=== PATIENT | female | born 1960 | race Caucasian/White ===

== ENCOUNTER → 2017-10-27 | Outpatient (CLI) | payer OTHER ==
--- NOTE | 2017-10-27 11:30 | XR ---
EXAMINATION TYPE: XR knee complete RT DATE OF EXAM: 10/27/2017 COMPARISON: NONE HISTORY: Pain TECHNIQUE: Four views are submitted. FINDINGS: Hypertrophic changes are noted and there is narrowing of the patellofemoral joint and the medial and lateral compartment of the knee joint. No erosive changes. Mild diffuse osteopenia. Soft tissue calci fications are noted. Osseous structures are intact. No acute fracture seen. IMPRESSION: 1. Arthritic changes. Correlate for osteoarthritis.
== END ==
LOC: RADXRMAIN 11:09
PROVIDERS: ATTEND Family Medicine
DX: M25.561 Pain in right knee (principal)

== ENCOUNTER → 2017-12-08 | Outpatient (CLI) | payer OTHER ==
--- NOTE | 2017-12-08 16:17 | MR ---
EXAMINATION TYPE: MR knee RT wo con DATE OF EXAM: 12/08/2017 COMPARISON: Right knee x-ray October 27, 2017 HISTORY: Other specified joint dis, right knee per order. Right knee swelling for 1.5 months per [facility]. TECHNIQUE: Multiplanar, multisequence images of the knee is performed without IV contrast. FINDINGS: MEDIAL MENISCUS: Anterior horn is intact without tear. There is oblique and globular increased signal posterior horn of medial meniscus extends to inferior articular surface. LATERAL MENISCUS: Anterior horn is intact without tear. Posterior horn is truncated with fraying trent g posterior margin and increased signal inferiorly extending to articular surface, findings are consi stent with full-thickness meniscal tear. CRUCIATE LIGAMENTS: The anterior and posterior cruciate ligaments are intact and unremarkable. COLLATERAL LIGAMENTS: The medial collateral ligament and lateral collateral ligament complex are inta ct. Moderate to severe fluid signal surrounds medial collateral ligament. EXTENSOR MECHANISM: Visualized quadriceps and patellar tendons are intact. EFFUSION: There is moderate to large size suprapatellar joint effusion. POPLITEAL CYST: No popliteal/tenorio cyst. TRICOMPARTMENT SPACES: There is moderate to advanced tricompartment joint space loss and moderate spu rring more prominent than suspected on radiographs. Tibial condylar spurring is seen. CARTILAGE: There is chondromalacia patella with areas of full-thickness cartilaginous loss along post erior patellar pole identified. No reactive osseous changes are seen. There is significant cartilagin ous loss medial tibiofemoral compartment with full-thickness loss is present. There is thinning of ar ticular cartilage lateral tibiofemoral compartment. BONE MARROW SIGNAL: There are areas of heterogeneous increased T2 signal involving the distal medial femoral condyle and lateral tibial plateau anteriorly seen best coronal image 18 and corresponding ax ial images 7 and 10. OTHER: No additional significant abnormality is appreciated. IMPRESSION: 1. There is background moderate to advanced tricompartment degenerative changes with full-thickness c hondromalacia patella present and full-thickness cartilaginous loss medial tibiofemoral compartment w ith areas of [id number]-[id number] formation or bone marrow edema noted. 2. Moderate to severe MCL sprain injury. 3. Full-thickness tear posterior horn of medial meniscus. 4. Full-thickness tear posterior horn of lateral meniscus. 5. Moderate to large size suprapatellar joint effusion.
== END | disposition home or self-care (01) ==
LOC: RADMRIMAIN 06:36
PROVIDERS: ATTEND Family Medicine
DX: S83.281A Other tear of lateral meniscus, current injury, right knee, initial encounter (principal); S83.241A Other tear of medial meniscus, current injury, right knee, initial encounter; S83.411A Sprain of medial collateral ligament of right knee, initial encounter; M22.41 Chondromalacia patellae, right knee; M94.8X6 Other specified disorders of cartilage, lower leg

== ENCOUNTER → 2018-09-28 | Outpatient (CLI) | payer OTHER ==
[2018-09-28 09:44] LABS: HCT 42.4 % (34.0-46.0); MCH 30.4 pg (25.0-35.0); MCHC 33.1 g/dL (31.0-37.0); MCV 91.9 fL (80.0-100.0); Mean Platelet Volume 7.5; Platelet Count 234 k/uL (150-450); RBC 4.62 m/uL (3.80-5.40); WBC 8.4 k/uL (3.8-10.6)
== END | disposition home or self-care (01) ==
LOC: LABPAT 08:49
PROVIDERS: ATTEND Internal Medicine Interventional Cardiology
DX: Z01.812 Encounter for preprocedural laboratory examination (principal); R07.9 Chest pain, unspecified; I10 Essential (primary) hypertension; E78.2 Mixed hyperlipidemia
CPT/HCPCS: 36415; 80051; 82565; 84520; 85027

== ENCOUNTER 2018-10-12 06:25 | Day surgery (SDC) | payer OTHER ==
[2018-10-07 16:48] VITALS: BMI 34.0
[~2018-10-12 06:25] MED LIST: ALPRAZolam 0.25 MG TAB PO PRN; ALPRAZolam 0.5 MG TAB PO PRN; ASPIRIN 325 MG TAB PO STA; ATORVASTATIN 80 MG TAB PO STA; NITROGLYCERIN SL TABS 0.4 MG TAB SUBLINGUAL PRN; SODIUM CHLORIDE 0.9% 1,000 ML in EMPTY BAG 1 BAG IV ONE
[2018-10-12 07:04] VITALS: RESP 16; TEMP 98.5
[2018-10-12] MEDS ORDERED: SODIUM CHLORIDE 0.9% 1,000 ML IV ONE (07:04)
[2018-10-12] MEDS ORDERED: VERAPAMIL 2.5 MG/ML 2 ML AMP ONE (07:20)
[2018-10-12] MEDS ORDERED: LIDOCAINE 1% INJ 10MG/ML (20 ML MDV) ONE (07:20)
[2018-10-12] MEDS ORDERED: fentaNYL (PF) 50 MCG/ML 2 ML AMP ONE (07:21)
[2018-10-12] MEDS ORDERED: HEPARIN SODIUM 1,000 UN/ML (10ML VL) ONE (07:21)
[2018-10-12] MEDS ORDERED: fentaNYL (PF) 50 MCG/ML 2 ML AMP IVP ONE (07:35)
[2018-10-12] MEDS ORDERED: LIDOCAINE 2% INJ 20 MG/ML SQ ONE ×2 (07:35→07:36)
[2018-10-12] MEDS ORDERED: VERAPAMIL SYRINGE (5 MG/10 ML) INTRAARTER ONE (07:39)
[2018-10-12] MEDS ORDERED: MIDAZOLAM 2 MG/2 ML VIAL IVP ONE (07:39)
[2018-10-12] MEDS ORDERED: HEPARIN SODIUM 1,000 UN/ML (10ML VL) IV ONE (07:45)
[2018-10-12] MEDS ORDERED: IOPAMIDOL-370 125ML BTL INJ ONE (07:52)
[2018-10-12] MEDS ORDERED: RX INFO: IV CONTRAST WAS GIVEN 1 EACH MISC MISCELLANE PRN (08:05)
[2018-10-12] MEDS ORDERED: SODIUM CHLORIDE 0.9% 1,000 ML IV SCH (08:15)
[2018-10-12] MEDS ORDERED: CHONDR SU A SOD PO SCH (09:00)
[2018-10-12] MEDS ORDERED: NON-FORMULARY DRUG (Ubidecarenone [Co Q-10] 200 MG) PO SCH (09:00)
[2018-10-12] MEDS ORDERED: GLUCOSAMINE PO SCH (09:00)
[2018-10-12] MEDS ORDERED: NON-FORMULARY DRUG (Aspirin Ec 81 MG) PO SCH (09:00)
[2018-10-12] MEDS ORDERED: CARVEDILOL 25 MG PO SCH (09:00)
[2018-10-12] MEDS ORDERED: NON-FORMULARY DRUG (Turmeric Root Extract [Turmeric] 500 MG) PO SCH (09:00)
[2018-10-12] MEDS ORDERED: HYDROCHLOROTHIAZIDE 25 MG TAB PO SCH (09:00)
[2018-10-12] MEDS ORDERED: MAGNESIUM OXIDE 750 MG PO SCH (09:00)
[2018-10-12] MEDS ORDERED: ISOSORBIDE MONONITRATE ER 30 MG TAB.ER.24H PO SCH (09:00)
--- NOTE | 2018-10-12 10:56 | CC ---
CARDIAC CATHETERIZATION REPORT Mrs. Pierce is a 58-year-old female with known history of hypertension, hyperlipidemia who presented with symptoms of progressive dyspnea on exertion as well as chest discomfort. She has underwent myocardial perfusion imaging that revealed no evidence of inducible ischemia by nuclear scanning but there was significant EKG changes. In view of her symptoms and her history, recommendation made regarding cardiac catheterization, the procedures, risks and complications were discussed with the patient who is in full understanding and agreement. PROCEDURE: Patient was brought to the clinical laboratory scientist in a fasting semi-sedated state after receiving fentanyl and Benadryl and achieving moderate conscious sedated state. Using Xylocaine anesthesia and Seldinger technique, a 6-Zambian sheath was introduced in the right radial artery. Selective right and left coronary angiography was performed using 5- [place]ambian 3.5 bend right and left Amadou catheter. Multiple views of the coronary artery including hemiaxial views obtained. Following that, a 5-Zambian tight pigtail catheter was introduced in the left ventricle and a 30 degree SOTOMAYOR view of the left ventricle was obtained. Following that, catheter and sheaths were removed. Hemostasis was obtained with deployment of TR band. There was no immediate complication. Patient is returned to her room in stable condition. Of note, the patient received 5000 units of intravenous heparin as well as intra-arterial verapamil. FINDINGS: FLUOROSCOPY: There was mild calcification involving the left main and the LAD. LEFT MAIN CORONARY ARTERY: This is a short-size vessel, bifurcating into left circumflex, left anterior descending artery. Left main coronary artery has no evidence of high-grade stenosis. LEFT ANTERIOR DESCENDING ARTERY: This is a large-sized vessel, reaching toward the apex with a wraparound apex segment giving rise to 2 diagonal branches in the mid segment of the LAD. There is a 10%-20% plaque. The rest of the vessel has no high- grade stenosis. LEFT CIRCUMFLEX: This is a nondominant vessel, large in caliber, giving rise to 2 obtuse marginal branches. The first one is very proximal. The left circumflex as well as branches have no evidence of obstructive coronary artery disease. RIGHT CORONARY ARTERY: This is a large dominant vessel, bifurcating distally into PDA and posterolateral segment and branches. The right coronary artery in the proximal segment has 10%-20%plaque. The rest of the vessel has no high-grade stenosis. LEFT VENTRICULOGRAM: Left ventriculogram is performed in 30 degree SOTOMAYOR view and revealed normal left ventricular size and systolic function. Ejection fraction is 60%. There was no significant mitral regurgitation. HEMODYNAMICS: There was no gradient across the aortic valve. The left ventricular end-diastolic pressure was 14-16 mmHg. CONCLUSION: 1. Mild intimal disease involving the left circumflex at the left anterior descending artery and the right coronary artery. 2. Normal left ventricular size and systolic function. RECOMMENDATION: In view of finding anatomy, I recommend continue medical therapy with aggressive coronary risk modifications being initiated. Those findings and recommendation were discussed with the patient and her family who are in full understanding and agreement. Duration of procedure is 20 minutes. MMODL / IJN: [id number] /
[2018-10-12 12:27] VITALS: BP 124/58
[2018-10-12 13:00] VITALS: PULSE 65
[2018-10-12] MEDS ORDERED: PRAVASTATIN SODIUM 20 MG TAB PO SCH (21:00)
[2018-10-13] MEDS ORDERED: NON-FORMULARY DRUG (Omeprazole 20 MG) PO SCH (07:30)
== END 2018-10-12 13:00 | disposition home or self-care (01) ==
LOC: CATHCVL 06:25
PROVIDERS: ATTEND Internal Medicine Interventional Cardiology
DX: R07.89 Other chest pain (principal); I25.10 Atherosclerotic heart disease of native coronary artery without angina pectoris; I10 Essential (primary) hypertension; E78.2 Mixed hyperlipidemia; E78.00 Pure hypercholesterolemia, unspecified; Z79.82 Long term (current) use of aspirin; Z79.899 Other long term (current) drug therapy; Z88.5 Allergy status to narcotic agent; Z88.0 Allergy status to penicillin
CPT/HCPCS: 93458; C1894; C1769; J2001; J2250; J3010; J1644; Q9967

== ENCOUNTER → 2018-12-31 | Outpatient (CLI) | payer OTHER ==
--- NOTE | 2018-12-31 11:39 | XR ---
EXAM TYPE: LUMBAR SPINE X RAY SERIES COMPARISON: NONE HISTORY: Pain TECHNIQUE: 4 views are submitted. FINDINGS: Alignment is anatomic. The pedicles are intact. The transverse processes are intact. There is no s pondylolysis or spondylolisthesis. Hypertrophic and degenerative change of the spine. Multilevel fac et arthropathy. IMPRESSION: 1. Multilevel degenerative disc disease and facet arthropathy.
== END ==
LOC: RADXRMAIN 11:00
PROVIDERS: ATTEND Family Medicine
DX: M51.36 Other intervertebral disc degeneration, lumbar region (principal); M46.96 Unspecified inflammatory spondylopathy, lumbar region
CPT/HCPCS: 72100

== ENCOUNTER → 2019-05-10 | Outpatient (CLI) | payer OTHER ==
[2019-05-10 16:01] LABS: African American GFR (CKD) 70.4 (60.0-200.0); Albumin 4.5 g/dL (3.80-4.90); Albumin/Globulin Ratio 2.05 (1.60-3.17); Anion Gap 11.8 mmol/L (4.00-12.00); Calcium 9.8 mg/dL (8.7-10.3); Carbon Dioxide 32.2 mmol/L (21.6-31.8); Chol/HDL Ratio 4.39; Globulin 2.2 g/dL (1.6-3.3); LDL Cholesterol,Calculated 76.6 mg/dL (0.0-131.0); Potassium 3.7 mmol/L (3.5-5.5); Total Bilirubin 0.6 mg/dL (0.2-1.2); Total Protein 6.7 g/dL (6.2-8.2); VLDL Calculation 35.4 mg/dL (5.00-40.00)
== END ==
LOC: LABWHC1 09:02
PROVIDERS: ATTEND Nurse Practitioner Adult Health
DX: E78.2 Mixed hyperlipidemia (principal); I10 Essential (primary) hypertension
CPT/HCPCS: 36415; 80053; 80061

== ENCOUNTER → 2022-04-08 | Outpatient (CLI) | payer OTHER ==
--- NOTE | 2022-04-08 09:02 | USB ---
Reason for Exam: Clinical finding. Patient History: Menarche at age 11. First Full-Term at age 15. Postmenopausal. Risk Values: Tonia 5 year model risk: 1.1%. NCI Lifetime model risk: 4.9%. Technique: Method: Whole Breast Handheld. Prior Study Comparison: 05/01/2015 Bilateral Screening Mammogram, [facility]. 07/07/2017 Bilateral Screening Mammogram, [facility]. 10/29/2021 Bilateral Screening Mammogram, [facility]. Findings: The whole breast of the left breast, the axilla of the left breast and the retroareolar of the left breast were scanned. There is an irregular hypoechoic mass at the left 6:00 position for which biopsy is recommended. No additional lesions noted within the left breast. No abnormal lymph nodes visualized at this time.. Overall Assessment: Highly suggestive of malignancy, BI-RAD 5 Management: Ultrasound Core Biopsy of the left breast. A clinical breast exam by your physician is recommended on an annual basis and results should be correlated with mammographic findings. Electronically signed and approved by: Shiraz Barraza M.D. Radiologis
== END | disposition home or self-care (01) ==
LOC: RADUSWWP 08:13
PROVIDERS: ATTEND Family Medicine
DX: N63.24 Unspecified lump in the left breast, lower inner quadrant (principal)

== ENCOUNTER → 2022-04-15 | Day surgery (SDC) | payer OTHER | LOC: RADUSWWP 12:45 | PROVIDERS: ATTEND Surgery | DX: C50.512 Malignant neoplasm of lower-outer quadrant of left female breast (principal) | CPT/HCPCS: 88305; 88342; 88341; 77065; 19083; 19084; A4648 ==

== ENCOUNTER → 2022-05-03 | Outpatient (CLI) | payer OTHER ==
--- NOTE | 2022-05-09 15:03 | BMR ---
EXAMINATION TYPE: MR breast BILAT wo/w con DATE OF EXAM: 05/05/2022 COMPARISON: Mammogram and ultrasound dated 04/15/2022. Ultrasound dated 04/08/2022. Mammograms dated 10/29/2021 and 07/07/2017. 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 TECHNIQUE: PULSE SEQUENCES: Multiplanar, multisequence MR images of the breast were obtained on a MRI imaging [facility]. Pre-contrast axial T2 fat-saturated, pre-contrast non-fat saturated T1, and one pre- and five post-contrast fat-saturated images were obtained of both breasts together with the breast coil. Post- processed subtraction and MIP reconstructions were then generated. Dynamic images were spatially renny stered using the [employer] software package, and dynamic curves and parametric images were e valuated. As part of the dynamic portion of this examination, 10 mL of Gadavist was administered intravenously, without complication. Field of view for the dynamic portion of this study was 34 cm. FINDINGS: The technical quality of this study is considered adequate to make a final assessment and recommendat ion. There is heterogeneous fibroglandular tissue bilaterally and mild background enhancement. Axial T2 sequence demonstrates normal axillary lymph nodes. Axial T2 sequence demonstrates no cysts or fluid collections. Non fat saturated T1 sequence demonstrates no fat containing lesions. 2 areas of signal void are iden tified in the 6 o'clock position of the left breast corresponding to mammographic marker clip seen on 04/15/2022 post biopsy mammogram. Delayed post contrast sequence demonstrates no internal mammary lymphadenopathy. Regarding the right breast: There are no masses, architectural distortion or suspicious areas of enha ncement. Regarding the left breast: At the 6 o'clock position, 6.1 cm from the nipple, there is a round mass w ith irregular margins measuring 2.0 x 1.5 x 1.5 cm. Internal enhancement is heterogeneous. Kinetic as sessment demonstrates fast initial enhancement followed by washout in the delayed portions of the cur ve. This is best seen in image number 51 of the dynamic sequence. This mass contains signal void from marker clip and is the largest mass identified. At the 6 o'clock position, 5.0 cm from the nipple, there is an irregular mass with irregular margins measuring 1.5 x 1.1 x 1.1 cm. Internal enhancement is heterogeneous. Kinetic assessment demonstrates fast initial enhancement followed by plateau in the delayed portions of the curve. This is best seen in image number 49 of the dynamic sequence. Multiple additional masses are seen also at the 6 o'clock position but 10-11 cm from the nipple. Tota l extent of the masses identified is 8.0 cm. In addition, there is segmental distribution non mass enhancement measuring 11.7 x 5.5 cm. IMPRESSION: Multifocal breast malignancy identified centered at the 6 o'clock position with associated segmental distribution non mass enhancement, maximum extent of 11.7 cm. The largest and target mass measures a maximum extent of 2.0 cm. No evidence of malignancy in the right breast. No lymphadenopathy. Recommendations: Appropriate action be taken of the known multifocal left breast malignancy. If it would change surgic al management, additional biopsies of the non mass enhancement or posterior masses can be performed t o confirm a maximum extent of disease of 11.7 cm. BI-RADS category 1, negative right breast. BI-RADS category 6, known biopsy proven malignancy left breast. I have reviewed interpretation from outside car sales consultant at [facility] and agree with the interpretation
== END | disposition home or self-care (01) ==
LOC: RADMRIMAIN 07:48
PROVIDERS: ATTEND Surgery
DX: C50.811 Malignant neoplasm of overlapping sites of right female breast (principal); C50.912 Malignant neoplasm of unspecified site of left female breast
CPT/HCPCS: 77049; A9585

== ENCOUNTER → 2022-05-09 | Outpatient (CLI) | payer OTHER ==
--- NOTE | 2022-05-09 13:09 | CA ---
Transthoracic Echo Report Name: Augusta Pierce Age: 62 Gender: F : 1960 Exam Date: 05/09/2022 11:39 Exam Location: [facility] Ht (in): 68 Wt (lb): 218 Ordering Physician: Shanna Strange MD Attending/Referring Phys: Natural Resources Manager Sherrell Heard RDCS Procedure CPT: Indications: Z71.3 dietary surveil/counsel[employer] Cardiac Hx: Technical Quality: Fair Contrast 1: Total Dose (mL): Contrast 2: Total Dose (mL): MEASUREMENTS (Male / Female) Normal Values 2D ECHO LV Diastolic Diameter PLAX 4.2 cm 4.2 - 5.9 / 3.9 - 5.3 cm LV Systolic Diameter PLAX 3.0 cm IVS Diastolic Thickness 1.4 cm 0.6 - 1.0 / 0.6 - 0.9 cm LVPW Diastolic Thickness 1.4 cm 0.6 - 1.0 / 0.6 - 0.9 cm LV Relative Wall Thickness 0.7 RV Internal Dim ED PLAX 3.5 cm LVOT Diameter 2.2 cm LA Systolic Diameter LX 3.9 cm 3.0 - 4.0 / 2.7 - 3.8 cm LA Volume 68.8 cm??? 18 - 58 / 22 - 52 cm??? M-MODE Aortic Root Diameter MM 3.5 cm MV E Point Septal Separation 0.6 cm AV Cusp Separation MM 1.9 cm DOPPLER AV Peak Velocity 217.5 cm/s AV Peak Gradient 18.9 mmHg AV Mean Velocity 134.5 cm/s AV Mean Gradient 8.9 mmHg AV Velocity Time Integral 49.1 cm LVOT Peak Velocity 118.5 cm/s LVOT Peak Gradient 5.6 mmHg AV Area Cont Eq pk 2.1 cm??? MV Area PHT 1.9 cm??? Mitral E Point Velocity 89.0 cm/s Mitral A Point Velocity 107.9 cm/s Mitral E to A Ratio 0.8 MV Deceleration Time 392.5 ms MV E' Velocity 5.0 cm/s Mitral E to MV E' Ratio 17.8 TR Peak Velocity 238.2 cm/s TR Peak Gradient 22.7 mmHg Right Ventricular Systolic Press 27.1 mmHg FINDINGS Left Ventricle Left ventricular ejection fraction is estimated at 60-65 %. Left ventricular cavity size normal. Moderate concentric left ventricular hypertrophy. Right Ventricle Mild right ventricular dilatation. Moderate pulmonary hypertension. Right Atrium Normal right atrial size. Left Atrium Mildly increased left atrial diameter. Moderately increased left atrial volume. Mildly increased left atrial area. No evidence for an atrial septal defect. Mitral Valve Mitral valve thickened. Mitral annular calcification. Trace to mild mitral regurgitation. Aortic Valve Focal thickening of the aortic valve cusps. Mild aortic stenosis with a peak gradient of 19 mmHg and a mean gradient of 9 mmHg. Tricuspid Valve Mild tricuspid regurgitation. Pulmonic Valve Structurally normal pulmonic valve. Pericardium Normal pericardium. No pericardial effusion. Aorta Normal size aortic root and proximal ascending aorta. CONCLUSIONS Normal left ventricular ejection fraction 60-65% Moderate increased left ventricular wall thickness Mild to moderately dilated left atrium Trace to mild mitral regurgitation Mild aortic stenosis with mean gradient 9 mmHg Mild tricuspid regurgitation Previewed by: Dr. Jeremy Johnson DO (Electronically Signed) Final Date: 09 May 2022 13:08
== END | disposition home or self-care (01) ==
LOC: RADECHMAIN 11:18
PROVIDERS: ATTEND Internal Medicine
DX: Z01.818 Encounter for other preprocedural examination (principal); I08.3 Combined rheumatic disorders of mitral, aortic and tricuspid valves; Z71.3 Dietary counseling and surveillance
CPT/HCPCS: 93306

== ENCOUNTER 2022-05-16 06:22 | Day surgery (SDC) | payer OTHER ==
[2022-05-14 15:25] VITALS: BMI 31.9
--- NOTE | 2022-05-15 16:19 | P.GSHP ---
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 Patient was seen by oncology and plans currently are to begin neoadjuvant chemotherapy. Patient has not had a catheter previously. Past Medical History Past Medical History: Atrial Fibrillation, Cancer, Diabetes Mellitus, GERD/Reflux, Hyperlipidemia, Hypertension, Osteoarthritis (OA) Additional Past Medical History / Comment(s): DDD., chronic constipation, pre- diabetes., new diagnosis left breast cancer History of Any Multi-Drug Resistant Organisms: None Reported Past Surgical History: Tubal Ligation Additional Past Surgical History / Comment(s): cataracts Past Anesthesia/Blood Transfusion Reactions: No Reported Reaction Past Psychological History: No Psychological Hx Reported Smoking Status: Never smoker Past Alcohol Use History: None Reported Past Drug Use History: None Reported - Past Family History Sister(s) Family Medical History: Cancer, Renal Disease Additional Family Medical History / Comment(s): throat cancer Father Family Medical History: CVA/TIA Daughter(s) Family Medical History: Pulmonary Embolus Additional Family Medical History / Comment(s): PE CAUSED BY CONTROL Medications and Allergies Home Medications Medication Instructions Recorded Confirmed Type hydroCHLOROthiazide [Hydrodiuril] 25 mg PO DAILY 10/07/14 05/15/22 History Ubidecarenone [Co Q-10] 200 mg PO DAILY 03/27/16 05/15/22 History Glucosamine/Chondr Benson A Sod [Osteo 1 each PO DAILY 10/07/18 05/15/22 History Bi-Flex Caplet] Pravastatin Sodium [Pravachol] 20 mg PO HS 10/07/18 05/15/22 History carvediloL 25 mg PO BID 10/07/18 05/15/22 History Ezetimibe [Zetia] 10 mg PO HS 04/08/22 05/15/22 History Flecainide [Tambocor] 50 mg PO Q12HR 04/08/22 05/15/22 History Rivaroxaban [Xarelto] 20 mg PO HS 04/08/22 05/15/22 History Magnesium 400 mg PO DAILY 05/15/22 05/15/22 History Multivit with Calcium,Iron,Min 1 each PO DAILY 05/15/22 05/15/22 History [Women's Multivitamin] Allergies Allergy/AdvReac Type Severity Reaction Status Date / Time codeine Allergy Swelling Verified 05/14/22 15:04 Penicillins Allergy Rash/Hives Verified 05/14/22 15:04 Surgical - Exam Physical exam: General: Well-developed, well-nourished HEENT: Normocephalic, sclerae nonicteric Abdomen: Nontender, nondistended Extremities: No edema Neuro: Alert and oriented Assessment and Plan (1) Breast cancer, left Narrative/Plan: 62-year-old female with left-sided breast cancer. We'll proceed with Port-A-Cath placement. Risks of bleeding, infection, DVT, pneumothorax, catheter malfunction, anesthesia related complications were discussed. The p atient understands and wishes to proceed. Status: Acute Code(s): C50.912 - MALIGNANT NEOPLASM OF UNSPECIFIED SITE OF LEFT FEMALE BREAST SNOMED Code(s): 907436675
[~2022-05-16 06:22] MED LIST changes: +ACETAMINOPHEN TAB 500 MG TAB PO PRN; -ALPRAZolam 0.25 MG TAB PO PRN; -ALPRAZolam 0.5 MG TAB PO PRN; -ASPIRIN 325 MG TAB PO STA; -ATORVASTATIN 80 MG TAB PO STA; +DEXAMETHASONE SOD PHOSPHATE 4 MG/ML 1 ML VIAL IV ONE; +HEPARIN SODIUM,PORCINE/PF 5,000 UNIT/0.5 ML SYRINGE SQ PRN; +LACTATED RINGERS 1,000 ML IV SCH; +MIDAZOLAM 2 MG/2 ML VIAL IV PRN; -NITROGLYCERIN SL TABS 0.4 MG TAB SUBLINGUAL PRN; +ONDANSETRON 4 MG/2 ML VIAL IVP ONE; +Pre Op ABX Message 1 EACH MISC MISCELLANE ONE; +SCOPOLAMINE 1 MG/72 HR PATCH TRANSDERM ONE; -SODIUM CHLORIDE 0.9% 1,000 ML in EMPTY BAG 1 BAG IV ONE
[2022-05-16] MEDS ORDERED: fentaNYL (PF) 50 MCG/ML 2 ML AMP IV PRN (07:00)
[2022-05-16] MEDS ORDERED: LIDOCAINE (PF) 10 MG/ML 2 ML VIAL SQ ONE ×3 (07:25→08:05)
[2022-05-16] MEDS ORDERED: HEPARIN SODIUM,PORCINE 100 UNIT/ML 5 ML VIAL IV ONE ×2 (07:25→08:16)
[2022-05-16] MEDS ORDERED: PROPOFOL 10 MG/ML 20 ML VIAL IV ONE (07:35)
[2022-05-16] MEDS ORDERED: diphenhydrAMINE 50 MG/ML 1 ML VIAL ONE (07:35)
[2022-05-16] MEDS ORDERED: LIDOCAINE 2% INJ 20 MG/ML (2 ML VIAL) ONE (07:35)
[2022-05-16] MEDS ORDERED: fentaNYL (PF) 50 MCG/ML 2 ML AMP ONE (07:35)
[2022-05-16] MEDS ORDERED: MIDAZOLAM 2 MG/2 ML VIAL ONE (07:35)
[2022-05-16] MEDS ORDERED: SODIUM CHLORIDE 0.9% 100 ML with ceFAZolin 2,000 MG IV ONE ×2 (07:57)
[2022-05-16] MEDS ORDERED: LACTATED RINGERS 1,000 ML IV ONE (08:16)
[2022-05-16] MEDS ORDERED: HYDROcodone/APAP 5-325MG 1 EACH TAB PO PRN (08:49)
[2022-05-16] MEDS ORDERED: NALOXONE 0.4 MG/ML 1 ML VIAL IV PRN (08:49)
--- NOTE | 2022-05-16 08:52 | P.OP ---
Date of Procedure: 05/16/22 Procedure(s) Performed: PREOPERATIVE DIAGNOSIS: Left breast cancer POSTOPERATIVE DIAGNOSIS: Same PROCEDURE: Port-A-Cath placement with fluoroscopic and ultrasound guidance SURGEON: Sanjuana EBL: Minimal ANESTHESIA: Gen. COMPLICATIONS: None OPERATIVE PROCEDURE: Patient was brought and placed on the operative table in the supine position. The patient was sedated per anesthesia that time. The chest and neck were prepped and draped in usual sterile fashion. The ultrasound probe was used to identify the location of the right internal jugular vein. The skin was localized with lidocaine. The Seldinger needle was advanced into the IJ under ultrasound guidance. The wire was advanced through the needle under fluoroscopic guidance into the superior vena cava. A port pocket was created in the right infraclavicular location. The catheter was tunneled from the wire entrance site to the port pocket. The port was then connected to the catheter. The dilator introducer was threaded over the guidewire. The guidewire and dilator were then removed. The catheter was advanced through the introducer and introducer was then removed. The tip was seen to be in the right atrial junction via fluoroscopy. A picture of the radiograph showing the tip at the radial digital junction was taken. Port was flushed with both saline and a Hep- Lock solution. There was good flow both in and out of the port. The port was sutured in underlying tissues using 3-0 silk sutures. The subcutaneous tissues were reapproximated using 3-0 Vicryl sutures and the skin at both locations using 4-0 Monocryl sutures. Skin glue and sterile dressings then applied. DISPOSITION: Stable to recovery room
[2022-05-16 09:08] VITALS: TEMP 97
--- NOTE | 2022-05-16 09:19 | XR ---
EXAMINATION TYPE: XR chest 1V confirm line [facility] DATE OF EXAM: 05/16/2022 COMPARISON: Chest x-ray 03/27/2016 HISTORY: Status post central venous catheter placement TECHNIQUE: Single frontal view of the chest is obtained. FINDINGS: There is been interval placement of a port in the right pectoral region, catheter courses via jugular approach with the distal tip at the level of the cavoatrial junction. There is no evident pneumothorax or pleural effusion. Cardiac mediastinal silhouette is stable accounting for difference s in technique. Aorta is dense. There are overlying leads. Some patchy densities present at the left lung base. Mild apical pleural thickening in the right is unchanged. IMPRESSION: No evident complication status post central venous catheter placement. There may be some basilar atelectasis, follow-up as indicated.
--- NOTE | 2022-05-16 09:20 | FL ---
Fluoroscopy HISTORY: Port-A-Cath insertion 8 seconds fluoroscopy time supplied to the referring clinician. 1 intraoperative C-arm images docume nt the procedure. See dictated report from general surgery.
[2022-05-16 09:36] VITALS: BP 141/80; PULSE 66; RESP 20
== END 2022-05-16 09:55 ==
LOC: OR 06:22
PROVIDERS: ATTEND Surgery
DX: C50.912 Malignant neoplasm of unspecified site of left female breast (principal); I48.91 Unspecified atrial fibrillation; E11.9 Type 2 diabetes mellitus without complications; K21.9 Gastro-esophageal reflux disease without esophagitis; I10 Essential (primary) hypertension; E78.5 Hyperlipidemia, unspecified; M19.90 Unspecified osteoarthritis, unspecified site; K59.00 Constipation, unspecified; Z98.41 Cataract extraction status, right eye; Z98.42 Cataract extraction status, left eye; Z98.51 Tubal ligation status; Z80.8 Family history of malignant neoplasm of other organs or systems; Z82.3 Family history of stroke; Z79.899 Other long term (current) drug therapy; Z88.5 Allergy status to narcotic agent; Z88.0 Allergy status to penicillin
CPT/HCPCS: 77001; 36561; 76937; C1788; J2250; J1200; J2001 ×2; J1642; J1100; J0690; J3010; J2704; J1644

== ENCOUNTER → 2022-05-16 | Outpatient (CLI) | payer OTHER ==
--- NOTE | 2022-05-18 08:41 | PE ---
EXAMINATION TYPE: PET CT fusion skull to thigh DATE OF EXAM: 05/16/2022 COMPARISON: MRI bilateral breast May 03, 2022 HISTORY: Left-sided breast cancer TECHNIQUE: Following the intravenous administration of 11.36 mCi of F-18 FDG, whole body images are performed from the skull base to the midthigh. Images are reviewed on the computer in the coronal, a xial, and sagittal planes. Reconstructed rotating images are created on independent workstation and reviewed on the computer. A localization and attenuation correction CT is performed in conjunction with the PET scan. Blood glucose level equals 143 SCAN: Initial Scan FINDINGS: SKULL BASE AND NECK: No areas of abnormal hypermetabolic uptake. CHEST, MEDIASTINUM, AND HILAR REGION: Biopsy clip left breast noted axial image 101 just medial and i nferior to the left nipple. Mild hypermetabolic uptake just posterior-lateral to this has max SUV of 2.97 on axial image 102. This likely corresponds to the dominant 2.0 cm enhancing mass or neoplasm on recent MRI. Additional areas of nonmass enhancement are less well-seen without definitive abnormal h ypermetabolic uptake. No abnormal hypermetabolic uptake in the left axilla. No abnormal hypermetaboli c uptake in the right breast or axilla. No additional areas of abnormal hypermetabolic uptake in the thorax. ABDOMEN AND PELVIS: Normal excretion. No areas of abnormal hypermetabolic uptake. OSSEOUS STRUCTURES: No areas of abnormal hypermetabolic uptake. OTHER CT: There is right internal jugular Mediport catheter terminating in SVC. There is mild cardiom egaly with moderate coronary artery calcification. There is calcification at level of the mitral and aortic valves. There is large simple appearing thin-walled cyst occupying large portion of the central upper to left kidney and incidental exophytic thin-walled cyst anteriorly upper pole of the right kidney. Sigmoid colonic diverticulosis is present. Slight scoliotic curvature to the spine. Vacuum disc phenomenon and disc space narrowing lower lumbar levels. IMPRESSION: Primary left breast neoplasm on MRI less well seen on PET/CT. No abnormal hypermetabolic uptake in the right breast or evidence for metastatic disease on this study.
== END | disposition home or self-care (01) ==
LOC: RADPETMAIN 11:25
PROVIDERS: ATTEND Internal Medicine
DX: C50.112 Malignant neoplasm of central portion of left female breast (principal)
CPT/HCPCS: 78815; A9552

== ENCOUNTER → 2022-11-04 | Outpatient (CLI) | payer OTHER ==
--- NOTE | 2022-11-11 06:10 | BMR ---
EXAMINATION TYPE: MR breast BILAT wo/w con DATE OF EXAM: 11/04/2022 COMPARISON: Most recent breast MRI May 03, 2022 and older studies. Mammogram postbiopsy April 15, 2022 HISTORY: Left breast palpable mass. Biopsy-proven malignancy left breast April 15, 2022 invasive moderately differentiated ductal carcinoma. Left-sided breast cancer per order. Follow-up study after chemotherapy treatment after discussion with ordering oncology office. TECHNIQUE: A series of fat and water weighted images in the long and short axis views of both breasts are obtained in conjunction with dynamic contrast MRI with subtraction technique. The patient was i njected with 8.5 mL intravenous Gadavist gadolinium contrast. Three-dimensional and additional post processing imaging is created on independent workstation and reviewed during official interpretation of this study. FINDINGS: There is heterogeneous fibroglandular tissue bilaterally and mild background enhancement redemonstrat ed. Axial T2 sequence redemonstrate normal axillary lymph nodes. No new suspicious axillary adenopathy is seen. Axial T2 sequence demonstrates occasional punctate thin-walled cysts bilaterally. No suspicious focal fluid collection. There is new artifact from Mediport catheter in the posterior upper medial right c hest wall. Persistent 2 areas of signal void are redemonstrated in the 6 o'clock position of the left breast cor responding to mammographic marker clip seen on 04/15/2022 post biopsy mammogram. Delayed post contrast sequence demonstrates no new internal mammary lymphadenopathy. Regarding the right breast: There are no masses, architectural distortion or suspicious areas of enha ncement. No significant change from prior. Regarding the left breast: At the 6 o'clock position, approximately 6.0 cm from the nipple, where the re was prior 2.0 cm round mass with irregular margins there is only signal void from marker clip iden tified currently. No residual enhancement is present. At the 6 o'clock position, 5.0 cm from the nipple, at site of prior 1.5 cm irregular mass with irregu lar margins no residual enhancement is identified. Artifact from biopsy clip redemonstrated. Prior subsegmental distribution on mass enhancement near 11 cm in length shows no residual enhancemen t. No new enhancing masses or pathologic enhancement seen. IMPRESSION: Complete positive treatment response to the multifocal left breast malignancy with more e xtensive nonmass enhancement. No new areas of abnormal enhancement in either breast. No evidence of malignancy in the right breast. No lymphadenopathy. Recommendations: Appropriate action be taken of the known multifocal left breast malignancy. BI-RADS category 1, negative right breast. BI-RADS category 6, known biopsy proven malignancy left breast.
== END | disposition home or self-care (01) ==
LOC: RADMRIMAIN 11:59
PROVIDERS: ATTEND Internal Medicine
DX: C50.112 Malignant neoplasm of central portion of left female breast (principal)
CPT/HCPCS: 77049; A9585

== ENCOUNTER 2022-12-05 07:48 | Day surgery (SDC) | payer OTHER ==
[2022-12-03 15:33] VITALS: BMI 31.4
--- NOTE | 2022-12-05 07:33 | P.GSHP ---
History of Present Illness H&P Date: 12/05/22 Chief Complaint: Left breast cancer 62-year-old female well-known to our service. Most recently seen in the office on 10/30. The patient previously diagnosed with triple negative stage II left breast cancer. Initial MRI showed multifocal left breast cancer. 2 separate biopsy sites were initially taken. Patient underwent neoadjuvant chemotherapy. He finished that in early October. She had a repeat follow-up MRI performed on 11/04. These results were reviewed with the patient. Excellent response to treatment was noted on the recent MRI. Patient I discussed the options of left breast mastectomy with sentinel lymph node biopsy with or without reconstruction versus left breast lumpectomy 2 sites with sentinel lymph node biopsy. Patient considered this for a week or so and call back stating that she wanted to proceed with mastectomy. Past Medical History Past Medical History: Atrial Fibrillation, Cancer, Diabetes Mellitus, GERD/Reflux, Hyperlipidemia, Hypertension, Osteoarthritis (OA) Additional Past Medical History / Comment(s): DDD., chronic constipation, pre- diabetes., diagnosis left breast cancer Mar 2022-received chemo-last chemo 10-28-2022 History of Any Multi-Drug Resistant Organisms: None Reported Past Surgical History: Tubal Ligation Additional Past Surgical History / Comment(s): cataracts,left breast bx,port a cath rt chest Past Anesthesia/Blood Transfusion Reactions: No Reported Reaction Additional Past Anesthesia/Blood Transfusion Reaction / Comment(s): no problems w/ prior blood transfusion Smoking Status: Never smoker - Past Family History Sister(s) Family Medical History: Cancer, Renal Disease Additional Family Medical History / Comment(s): throat cancer Father Family Medical History: CVA/TIA Daughter(s) Family Medical History: Pulmonary Embolus Additional Family Medical History / Comment(s): PE CAUSED BY CONTROL Brother(s) Family Medical History: Rheumatoid Arthritis (RA) Additional Family Medical History / Comment(s): valve replacement,pancreatitis Medications and Allergies Home Medications Medication Instructions Recorded Confirmed Type hydroCHLOROthiazide [Hydrodiuril] 25 mg PO DAILY 10/07/14 12/03/22 History Pravastatin Sodium [Pravachol] 20 mg PO HS 10/07/18 12/03/22 History carvediloL 25 mg PO BID 10/07/18 12/03/22 History Ezetimibe [Zetia] 10 mg PO HS 04/08/22 12/03/22 History Flecainide [Tambocor] 50 mg PO BID 04/08/22 12/03/22 History Rivaroxaban [Xarelto] 20 mg PO W/SUPPER 04/08/22 12/03/22 History Cinnamon Bark [Cinnamon] 500 mg PO DAILY 12/03/22 12/03/22 History Glucosamine/Chondr Benson A Sod [Osteo 1 each PO DAILY 12/03/22 12/03/22 History Bi-Flex Caplet] OLANZapine [ZyPREXA] 5 mg PO HS 12/03/22 12/03/22 History Ubidecarenone [Co Q-10] 100 mg PO DAILY 12/03/22 12/03/22 History Allergies Allergy/AdvReac Type Severity Reaction Status Date / Time codeine Allergy Swelling Verified 12/03/22 15:19 of joints Penicillins Allergy Rash/Hives Verified 12/03/22 15:19 Surgical - Exam Physical exam: General: Well-developed, well-nourished HEENT: Normocephalic, sclerae nonicteric Right breast: No masses, no adenopathy Left breast: No masses, no adenopathy Abdomen: Nontender, nondistended Extremities: No edema Neuro: Alert and oriented Assessment and Plan (1) Breast cancer, left Narrative/Plan: 62-year-old female with triple negative status to be left breast cancer. We'll proceed with left breast simple mastectomy with left sentinel lymph node biopsy and injection at this time. Our pathologists is not in-house today. No option for frozen section. I think it is reasonable to proceed with sentinel lymph node biopsy with plans for sending nodes for permanent sectioning. Patient is agreeable. Risks of bleeding, infection, scarring, numbness, seroma, nerve injury, recurrence, poor healing reviewed. She understands and wishes to proceed. Status: Acute Code(s): C50.912 - MALIGNANT NEOPLASM OF UNSPECIFIED SITE OF LEFT FEMALE BREAST SNOMED Code(s): 001392348
--- NOTE | 2022-12-05 07:34 | P.NAPBC ---
NAPBC Queries - NAPBC Queries Was patient's case review presented at [facility] tumor board? If no, comment.: Yes Was patient's pathology reviewed at [facility]? If no, comment.: Yes Was breast conservation surgery offered? If no, comment.: Yes Was sentinel node biopsy offered? If no, comment.: Yes Was diagnosis confirmed by percutaneous core biopsy? If no, comment.: Yes Is patient mastectomy patient?: Yes Was a preop referral to reconstructive surgeon offered?: Yes Clinical Stage: 2b
[~2022-12-05 07:48] MED LIST changes: +HYDROmorphone 0.5 MG/0.5 ML SYRINGE IVP PRN; -LACTATED RINGERS 1,000 ML IV SCH; +LIDOCAINE 1% (10MG/ML) FOR IV START INTRADERMA PRN; -SCOPOLAMINE 1 MG/72 HR PATCH TRANSDERM ONE
[2022-12-05] MEDS ORDERED: ONDANSETRON 4 MG/2 ML VIAL ONE (08:30)
[2022-12-05] MEDS: LACTATED RINGERS 1,000 ML IV SCH ×2 (08:34→13:54)
[2022-12-05 08:48] LABS: ALT 34 U/L (4-34); AST 37 U/L (14-36); African American GFR (CKD) >90 (>60 ml/min/1.73 sqM); Alkaline Phosphatase 78 U/L (38-126); Anion Gap 10 mmol/L; Blood Urea Nitrogen 11 mg/dL (7-17); Calcium 9.1 mg/dL (8.4-10.2); Carbon Dioxide 27 mmol/L (22-30); Chloride 103 mmol/L (98-107); Glucose 132 mg/dL (74-99); Non-African American GFR(CKD) >90 (>60 ml/min/1.73 sqM); Potassium 3.5 mmol/L (3.5-5.1); Sodium 140 mmol/L (137-145); Total Bilirubin 0.7 mg/dL (0.2-1.3); Total Protein 6.7 g/dL (6.3-8.2)
[2022-12-05] MEDS ORDERED: MIDAZOLAM 2 MG/2 ML VIAL IV ONE (08:48)
[2022-12-05] MEDS ORDERED: PROPOFOL 10 MG/ML 20 ML VIAL IV ONE (09:54)
[2022-12-05] MEDS ORDERED: LIDOCAINE 2% INJ 20 MG/ML (2 ML VIAL) ONE (09:54)
[2022-12-05] MEDS ORDERED: KETOROLAC 15 MG/ML 1 ML VIAL ONE (09:54)
[2022-12-05] MEDS ORDERED: ceFAZolin 1,000 MG VIAL ONE (09:54)
[2022-12-05] MEDS ORDERED: fentaNYL (PF) 50 MCG/ML 2 ML AMP ONE (09:54)
[2022-12-05] MEDS ORDERED: SUCCINYLCHOLINE CHLORIDE 200 MG/10 ML VIAL IV ONE (09:54)
[2022-12-05] MEDS ORDERED: MIDAZOLAM 2 MG/2 ML VIAL ONE (09:54)
[2022-12-05] MEDS ORDERED: SODIUM CHLORIDE 0.9% 100 ML BAG ONE (09:54)
[2022-12-05] MEDS ORDERED: SODIUM CHLORIDE 0.9% 100 ML with ceFAZolin 2,000 MG IV ONE ×2 (09:57)
[2022-12-05] MEDS ORDERED: METHYLENE BLUE 50 MG/10 ML AMPUL INJ ONE (10:23)
[2022-12-05] MEDS ORDERED: NALOXONE 0.4 MG/ML 1 ML VIAL IV PRN (11:57)
[2022-12-05] MEDS ORDERED: HYDROmorphone 1 MG/ML 1 ML SYRINGE IVP PRN (11:57)
[2022-12-05] MEDS ORDERED: HYDROmorphone 0.5 MG/0.5 ML SYRINGE IVP PRN (11:57)
[2022-12-05] MEDS ORDERED: ONDANSETRON 4 MG/2 ML VIAL IVP PRN (11:57)
[2022-12-05] MEDS ORDERED: ACETAMINOPHEN TAB 325 MG TAB PO PRN (11:57)
--- NOTE | 2022-12-05 12:03 | P.OP ---
Date of Procedure: 12/05/22 Procedure(s) Performed: PREOPERATIVE DIAGNOSIS: Left breast cancer POSTOPERATIVE DIAGNOSIS: Same PROCEDURE: Left breast mastectomy with sentinel lymph node biopsy SURGEON: Sanjuana EBL: Minimal ANESTHESIA: General COMPLICATIONS: None OPERATIVE PROCEDURE: Patient was placed on the operating room table in the s upine position. 2 mL of methylene blue was injected into the subareolar space. The breast was then massaged for 5 minutes. Using the skin marker the proposed incision sites were drawn out on the chest wall. The superior incision was first created. The incision was elliptical in nature encompassing the nipple areolar complex. Flaps were raised superiorly until the chest wall was reached. The axilla was then addressed. Blunt dissection surprisingly did reveal immediately 2 hot and blue lymph nodes along with the feeding blue colored lymphatic vessel. Both of these lymph nodes were removed. These had benign characteristics. These were sent for permanent sectioning. The mastectomy incision was then created inferiorly and flaps were again raised until the chest wall was reached. The breast was removed from the chest wall using electrocautery. Multiple vessels were divided using either electrocautery or the clip handicapper harness racing. The area was irrigated. No bleeding was seen. A drain was placed beneath the flaps of the mastectomy incision. The subcutaneous tissues were then closed using 3-0 Vicryl sutures and the skin was closed using a running 4-0 Monocryl stitch. Prineo dressing was used along the entire length of the incision with Dermabond. The drain was sutured in place using a 3-0 silk stitch. DISPOSITION: Stable to recovery room
--- NOTE | 2022-12-05 12:21 | NM ---
EXAMINATION TYPE: NM sentinel node injection DATE OF EXAM: 12/05/2022 COMPARISON: MR breast 11/04/2022 CLINICAL INDICATION: Female, 62 years old with history of BREAST CA; TECHNIQUE AND FINDINGS: The procedure of sentinel lymph node injection was explained to the patient. The benefits, alternatives, and risks were discussed. An informed consent was then obtained. Overlying skin is cleaned with sterile alcohol. Following this, 521 uCi Tc99m Tilmanocept was inject ed in the upper outer aspect of the left nipple intradermally. The patient tolerated the procedure well without any immediate complication. The patient was kept in the radiology department for short stay after the procedure and then taken to surgery for surgical p rocedure what is presumed intraoperative gamma probe will be used for sentinel lymph node detection. IMPRESSION: Left breast radiotracer injection for sentinel node localization as above.
[2022-12-05] MEDS: PANTOPRAZOLE 40 MG/10 ML VIAL IV SCH (13:54)
[2022-12-05 16:40] LABS: Glucose,Whole Blood 141 mg/dL (70-110)
[2022-12-05] MEDS: HYDROcodone/APAP 5-325MG 1 EACH TAB PO PRN (17:14)
[2022-12-05] MEDS: HEPARIN SODIUM,PORCINE/PF 5,000 UNIT/0.5 ML SYRINGE SQ SCH ×2 (17:39→23:47)
[2022-12-05] MEDS: DOCUSATE 100 MG CAP PO SCH (20:51)
[2022-12-05] MEDS: D5-0.45% NACL WITH KCL 20MEQ/L 1,000 ML IV SCH (20:51)
[2022-12-05 21:10] LABS: Glucose,Whole Blood 213 mg/dL (70-110)
[2022-12-06] MEDS: LACTATED RINGERS 1,000 ML IV SCH (05:33)
[2022-12-06] MEDS: D5-0.45% NACL WITH KCL 20MEQ/L 1,000 ML IV SCH (06:22)
[2022-12-06 06:25] LABS: Glucose,Whole Blood 155 mg/dL (70-110)
[2022-12-06] MEDS ORDERED: carvediloL 12.5 MG TAB PO SCH (07:30)
[2022-12-06 08:46] VITALS: BP 125/71; PULSE 70; RESP 14; TEMP 99.1
[2022-12-06] MEDS ORDERED: NON FORMULARY DRUG (Ubidecarenone [Co Q-10] 400 MG Capsule) PO SCH (09:00)
[2022-12-06] MEDS ORDERED: FLECAINIDE 50 MG TAB PO SCH (09:00)
[2022-12-06] MEDS ORDERED: NON FORMULARY DRUG (Glucosamine/Chondr Su A Sod [Osteo Bi-Flex Caplet] 1 EACH Tablet) PO SCH (09:00)
--- NOTE | 2022-12-06 09:09 | P.PN ---
Progress Note - Text Progress Note Date: 12/06/22 Patient's postoperative day 1 from left mastectomy with sentinel node biopsy. Patient is doing well. She wants to go home. On exam vital signs are stable. Incision is clean dry intact. Patiently discharged home. She'll follow-up Dr. Wei next week.
[2022-12-06] MEDS: DOCUSATE 100 MG CAP PO SCH (09:20)
[2022-12-06] MEDS: PANTOPRAZOLE 40 MG/10 ML VIAL IV SCH (09:21)
[2022-12-06] MEDS: HEPARIN SODIUM,PORCINE/PF 5,000 UNIT/0.5 ML SYRINGE SQ SCH (09:21)
[2022-12-06 11:36] LABS: Glucose,Whole Blood 164 mg/dL (70-110)
[2022-12-06] MEDS: HYDROcodone/APAP 5-325MG 1 EACH TAB PO PRN (11:50)
--- NOTE | 2022-12-06 14:25 | P.CONS ---
History of Present Illness - Reason for Consult Consult date: 12/06/22 medical management - History of Present Illness This is a 62 year old female with medical history of atrial fibrillation, di abetes mellitus, gerd, breast cancer. Patient underwent left breast mastectomy with sentinel lymph node biopsy and is postoperative day #1. Patient has undergone chemotherapy in the past. Patient is evaluated on medical floor today reports minimal surgical pain. Patient has been tolerating diet, up ambulating, and passing gas. Blood glucose has been running in the 150-200 range. Patient is not on any oral diabetic agents at home. Has been resumed on all home medications. Afebrile and on room. Patient will be discharged home today by surgery and recommending follow up in 1 week. Patient has drain in place and verbalizes understanding on how to drain this and keep log for follow up. No shortness of breath. REVIEW OF SYSTEMS: CONSTITUTIONAL: No fever, no malaise, no fatigue. HEENT: No recent visual problems or hearing problems. Denied any sore throat. CARDIOVASCULAR: No chest pain, orthopnea, PND, no palpitations, no syncope. PULMONARY: No shortness of breath, no cough, no hemoptysis. GASTROINTESTINAL: No diarrhea, no nausea, no vomiting, no abdominal pain. NEUROLOGICAL: No headaches, no weakness, no numbness. HEMATOLOGICAL: Denies any bleeding or petechiae. GENITOURINARY: Denies any burning micturition, frequency, or urgency. MUSCULOSKELETAL/RHEUMATOLOGICAL: Denies any joint pain, swelling, or any muscle pain. ENDOCRINE: Denies any polyuria or polydipsia. The rest of the 14-point review of systems is negative. PHYSICAL EXAMINATION: GENERAL: The patient is alert and oriented x3, not in any acute distress. Well developed, well nourished. HEENT: Pupils are round and equally reacting to light. EOMI. No scleral icterus. No conjunctival pallor. Normocephalic, atraumatic. No pharyngeal erythema. No thyromegaly. CARDIOVASCULAR: S1 and S2 present. No murmurs, rubs, or gallops. PULMONARY: Chest is clear to auscultation, no wheezing or crackles. ABDOMEN: Soft, nontender, nondistended, normoactive bowel sounds. No palpable organomegaly. Post surgical chest wall wrap in place and NORA drain in place with serosangueinous drainage. MUSCULOSKELETAL: No joint swelling or deformity. EXTREMITIES: No cyanosis, clubbing, or pedal edema. NEUROLOGICAL: Gross neurological examination did not reveal any focal deficits. SKIN: No rashes. Assessment and Plan Left breast cancer s/p chemotherapy postoperative day #1 left mastectomy and sentinel lymph node biopsy Chronic Atrial fibrillation maintained on xarelto and patient has been cleared by surgery to resume tonight Hypertension Hyperlipidemia History of osteoarthritis Diabetes Mellitus/prediabetes with blood glucose 150-200 patient to follow up with PCP regarding further management GI prophylaxis DVT prophylaxis patient to be resumed on xarelto on discharge Full Code Plan Continue same home medications on discharge. pain management and bowel regimen in place. Continue incentive spirometer 10 x an hour while awake. Follow up labs on discharge. The impression and plan of care has been dictated by Margaret Rosales Nurse Practitioner as directed. Dr. Perlita MD I have performed a history and physical examination and medical decision making of this patient, discussed the same with the dictator, and agree with the dictators assessment and plan as written, documented as a scribe. Based on total visit time, I have performed more than 50% of this visit. Past Medical History Past Medical History: Atrial Fibrillation, Cancer, Diabetes Mellitus, GERD/Reflux, Hyperlipidemia, Hypertension, Osteoarthritis (OA) Additional Past Medical History / Comment(s): DDD., chronic constipation, pre- diabetes., diagnosis left breast cancer Mar 2022-received chemo-last chemo 10-28-2022 History of Any Multi-Drug Resistant Organisms: None Reported Past Surgical History: Tubal Ligation Additional Past Surgical History / Comment(s): cataracts,left breast bx,port a cath rt chest Past Anesthesia/Blood Transfusion Reactions: No Reported Reaction Additional Past Anesthesia/Blood Transfusion Reaction / Comm: no problems w/ prior blood transfusion Past Psychological History: Anxiety, Panic Disorder Smoking Status: Never smoker Past Alcohol Use History: None Reported Past Drug Use History: None Reported - Past Family History Sister(s) Family Medical History: Cancer, Renal Disease Additional Family Medical History / Comment(s): throat cancer Father Family Medical History: CVA/TIA Daughter(s) Family Medical History: Pulmonary Embolus Additional Family Medical History / Comment(s): PE CAUSED BY CONTROL Brother(s) Family Medical History: Rheumatoid Arthritis (RA) Additional Family Medical History / Comment(s): valve replacement,pancreatitis Medications and Allergies Home Medications Medication Instructions Recorded Confirmed Type hydroCHLOROthiazide [Hydrodiuril] 25 mg PO DAILY 10/07/14 12/05/22 History Pravastatin Sodium [Pravachol] 20 mg PO HS 10/07/18 12/05/22 History carvediloL 25 mg PO BID 10/07/18 12/05/22 History Ezetimibe [Zetia] 10 mg PO HS 04/08/22 12/05/22 History Flecainide [Tambocor] 50 mg PO BID 04/08/22 12/05/22 History Rivaroxaban [Xarelto] 20 mg PO W/SUPPER 04/08/22 12/03/22 History Cinnamon Bark [Cinnamon] 500 mg PO DAILY 12/03/22 12/05/22 History Glucosamine/Chondr Benson A Sod [Osteo 1 each PO DAILY 12/03/22 12/05/22 History Bi-Flex Caplet] OLANZapine [ZyPREXA] 5 mg PO HS 12/03/22 12/05/22 History Ubidecarenone [Co Q-10] 100 mg PO DAILY 12/03/22 12/05/22 History Docusate [Colace] 100 mg PO BID #40 capsule 12/05/22 Rx HYDROcodone/APAP 5-325MG [[place] 1 tab PO Q6HR PRN 3 Days #18 tab 12/05/22 Rx 5-325] oxyCODONE HCL [OxyIR] 5 mg PO Q6H PRN 3 Days #12 tab 12/05/22 Rx Acetaminophen Tab [Tylenol] 650 mg PO Q6HR PRN tab 12/06/22 Rx Famotidine [Pepcid] 20 mg PO DAILY #30 tablet 12/06/22 Rx Allergies Allergy/AdvReac Type Severity Reaction Status Date / Time codeine Allergy Swelling Verified 12/05/22 08:08 of joints Penicillins Allergy Rash/Hives Verified 12/05/22 08:08 Physical Exam Vitals: Vital Signs Temp Pulse Resp BP Pulse Ox 12/06/22 07:10 99.1 F 70 14 125/71 96 12/06/22 02:00 98.3 F 66 16 132/71 97 12/05/22 20:00 98.8 F 80 16 119/64 95 12/05/22 14:55 68 18 136/65 94 L 05/12/23 14:40 65 18 134/67 96 12/05/22 14:24 66 16 135/75 97 12/05/22 14:09 97.8 F 65 16 130/70 98 12/05/22 13:30 63 16 131/60 99 12/05/22 13:00 65 16 133/62 99 12/05/22 12:45 69 16 128/62 100 12/05/22 12:30 65 16 129/60 100 12/05/22 12:15 75 16 136/65 100 12/05/22 12:00 75 16 137/59 100 12/05/22 11:54 97.4 F L 80 16 137/59 98 Intake and Output 12/05/22 12/06/22 12/06/22 22:59 06:59 14:59 Output Total 30 Balance -30 Output: Drainage 30 Chest 30 Other: # Voids 1 2 Results CBC & Chem 7: 12/05/22 08:26 Labs: Abnormal Lab Results - Last 24 Hours (Table) 12/05/22 12/05/22 12/06/22 Range/Units 16:39 21:09 06:23 POC Glucose (mg/dL) 141 H 213 H 155 H (70-110) mg/dL Assessment and Plan Time with Patient: Less than 30
[2022-12-06] MEDS ORDERED: EZETIMIBE 10 MG TAB PO SCH (21:00)
[2022-12-06] MEDS ORDERED: PRAVASTATIN SODIUM 20 MG TAB PO SCH (21:00)
[2022-12-06] MEDS ORDERED: OLANZapine 5 MG TAB PO SCH (21:00)
== END 2022-12-06 12:23 | disposition home or self-care (01) ==
LOC: OR 07:48 → 4SSUR 11:54 → OR 12-06 12:23
PROVIDERS: ATTEND Surgery
DX: C50.912 Malignant neoplasm of unspecified site of left female breast (principal); I48.91 Unspecified atrial fibrillation; E11.9 Type 2 diabetes mellitus without complications; I10 Essential (primary) hypertension; E78.5 Hyperlipidemia, unspecified; M19.90 Unspecified osteoarthritis, unspecified site; K21.9 Gastro-esophageal reflux disease without esophagitis; Z85.3 Personal history of malignant neoplasm of breast; Z98.42 Cataract extraction status, left eye; Z98.890 Other specified postprocedural states; Z17.1 Estrogen receptor negative status [ER-]; Z80.0 Family history of malignant neoplasm of digestive organs; Z82.3 Family history of stroke; Z83.79 Family history of other diseases of the digestive system; Z79.899 Other long term (current) drug therapy
CPT/HCPCS: 19303; 38525; 97110; 97161; 80053; 38792; 38900; A9520; J2250; J0330; J1100; J2405; J0690; J3010; J1885; J2704; C9113; Q9968; J1170; J1644 ×2; J2001; 88307; 88341; 88342

== ENCOUNTER → 2023-04-15 | Outpatient (CLI) | payer OTHER ==
--- NOTE | 2023-04-15 09:15 | MM ---
Reason for Exam: Additional evaluation requested from prior study. Last mammogram was performed 1 year(s) and 5 month(s) ago. Patient History: Menarche at age 11. First Full-Term at age 15. Postmenopausal. Breast cancer, left, age 61. Currently using Tamoxifen, starting at age 61. 04/15/2022, Malignant US breast needle core LT on the left side. 04/15/2022, US breast needle core addl LT on the Left side. Prior Study Comparison: 05/01/2015 Bilateral Screening Mammogram, [facility]. 07/07/2017 Bilateral Screening Mammogram, [facility]. 10/29/2021 Bilateral Screening Mammogram, [facility]. 04/15/2022 Left MG diagnostic mammo LT wo CAD., [facility]. Tissue Density: Right: The breast tissue is heterogeneously dense. This may lower the sensitivity of mammography. Findings: Analyzed By CAD. Pattern appears stable. Benign vascular calcification is present. No suspicious groups of microcalcifications, spiculated or lobular masses, architectural distortion or other secondary signs of malignancy are mammographically apparent. Overall Assessment: Benign, BI-RAD 2 Management: Screening Mammogram of the right breast in 1 year. A negative mammogram report should not preclude additional follow up of suspicious palpable abnormalities. Patient should continue monthly self breast exam. A clinical breast exam by your physician is recommended on an annual basis and results should be correlated with mammographic findings. Electronically signed and approved by: Piter Araiza D.O. Radiologis
== END | disposition home or self-care (01) ==
LOC: RADMAMWWP 08:16
PROVIDERS: ATTEND Surgery
DX: R92.8 Other abnormal and inconclusive findings on diagnostic imaging of breast (principal); Z78.0 Asymptomatic menopausal state; Z85.3 Personal history of malignant neoplasm of breast
CPT/HCPCS: 77061; 77065

== ENCOUNTER → 2023-11-09 | Outpatient (CLI) | payer OTHER ==
[2023-11-09 08:23] LABS: African American GFR (CKD) 89 (>60 ml/min/1.73 sqM); Blood Urea Nitrogen 16 mg/dL (7-17); Non-African American GFR(CKD) 77 (>60 ml/min/1.73 sqM)
--- NOTE | 2023-11-09 10:13 | CT ---
EXAMINATION TYPE: CT ChestAbdPelvis w con CT DLP: 1559.6 mGycm, Automated exposure control for dose reduction was used. DATE OF EXAM: 11/09/2023 8:59 AM COMPARISON: 05/16/2022, 11/09/2023 CLINICAL INDICATION:Female, 63 years old with history of C50.112 breast ca; PHH, f/u breast cancer hx of mastectomy Technique: CT ChestAbdPelvis w con; Multiple axial images were obtained. Two-dimensional coronal and sagittal reconstructions were obtained. Contrast used:100ml mL of Isovue 300 with IV Contrast, Oral contrast used: with Oral Contrast Findings: CHEST: LUNGS/ PLEURA: The lung parenchyma appears unremarkable. AIRWAY: Patent and unremarkable. HEART: Size within normal limits. The heart is mildly enlarged for size. Mild coronary artery atheros clerosis. Mild aortic valve consultations. MEDIASTINUM: No gross evidence of adenopathy. VASCULATURE: No aortic aneurysm. Right chest wall [id number]-[id number] tip terminating in the superior vena cava. MUSCULOSKELETAL: No acute osseous abnormalities. SOFT TISSUES/LYMPH NODES: The left breast is surgically absent. No remaining mass present. Postsurgic al clips noted. LOWER NECK: No significant findings. ABDOMEN: ABDOMEN LIVER: Unremarkable GALLBLADDER AND BILE DUCTS: Layering increased densities within the lumen consistent with gallstones are present. PANCREAS: Unremarkable. SPLEEN: Unremarkable. ADRENAL GLANDS: Unremarkable. KIDNEYS AND URETERS: No evidence of hydronephrosis or renal calculus. The ureters are unremarkable. Multiple bilateral renal cysts left greater than right. No obstructive uropathy. PELVIS BLADDER: Unremarkable REPRODUCTIVE: Unremarkable. ABDOMEN & PELVIS STOMACH AND BOWEL: No evidence of bowel obstruction. Scattered colonic diverticula. PERITONEUM: No evidence of pneumoperitoneum or free fluid. VASCULATURE: No evidence of aortic aneurysm. MUSCULOSKELETAL: No acute osseous abnormalities. Moderate disc degeneration changes are present throu ghout the thoracolumbar spine. LYMPH NODES: No gross evidence for lymphadenopathy. SOFT TISSUE/ABDOMINAL WALL: Unremarkable IMPRESSION: 1. Post surgical changes left breast. No evidence for lymphadenopathy or suspicious mass. 2. Cholelithiasis. 3. Colonic diverticulosis. Follow up recommendations for incidental pulmonary nodules are per [employer] or [employer].
--- NOTE | 2023-11-09 12:18 | NM ---
EXAMINATION TYPE: NM bone scan whole body DATE OF EXAM: 11/09/2023 12:12 PM CLINICAL INDICATION:Female, 63 years old with history of C50.112 breast ca; COMPARISON: 11/09/2023 TECHNIQUE: Intravenous administration 23.7 mCi Tc 99m MDP followed by multiple scintigraphic images o f the appendicular and axial skeleton Images acquired 3 hours post injection. FINDINGS: No abnormal uptake is identified within the appendicular or axial skeleton to suggest metastatic dise ase. There is increased uptake within the bilateral shoulder, sternoclavicular, and sacroiliac joints con sistent with degenerative changes. No other photopenic areas or areas of increased activity are ident ified. Physiologic radiotracer activity is demonstrated in the kidneys and bladder. IMPRESSION: Nothing to suggest metastatic disease.
== END | disposition home or self-care (01) ==
LOC: RADNMMAIN 06:47
PROVIDERS: ATTEND Internal Medicine
DX: K80.20 Calculus of gallbladder without cholecystitis without obstruction (principal); K57.30 Diverticulosis of large intestine without perforation or abscess without bleeding; Z85.3 Personal history of malignant neoplasm of breast
CPT/HCPCS: 82565; 84520; 71260; 74177; 36415; 78306; A9503; Q9967

== ENCOUNTER → 2024-05-23 | Outpatient (CLI) | payer OTHER ==
[2024-05-23 10:31] LABS: African American GFR (CKD) 75 (>60 ml/min/1.73 sqM); Blood Urea Nitrogen 17 mg/dL (7-17); Non-African American GFR(CKD) 65 (>60 ml/min/1.73 sqM)
--- NOTE | 2024-05-23 11:06 | CT ---
EXAMINATION TYPE: CT chest w con CT DLP: 312.90 mGycm, Automated exposure control for dose reduction was used. DATE OF EXAM: 05/23/2024 10:53 AM COMPARISON: CT chest and pelvis 11/09/2023, PET CT 05/16/2022 CLINICAL INDICATION:Female, 64 years old with history of C50.112; PHH, Chronic dry cough, hx breast c a TECHNIQUE: Multiple axial images were obtained through the chest following the administration of 100 cc of Isovue 300. . Coronal and sagittal reformats reviewed. FINDINGS: LUNGS/ PLEURA: No pleural effusion, pneumothorax, focal consolidation. Left anterior upper and mid jose ng peripheral reticular opacities most consistent with postradiation changes. No suspicious pulmonary nodule or mass. AIRWAY: Patent and unremarkable.. HEART: Mildly enlarged. No pericardial effusion. Small aortic valvular mitral annulus calcifications. Small coronary artery calcifications. MEDIASTINUM: No evidence of adenopathy. VASCULATURE: No aortic aneurysm. MUSCULOSKELETAL: No acute osseous abnormalities. No aggressive osseous lesion. [facility] of the mid to low er thoracic spine. SOFT TISSUES/LYMPH NODES: Postsurgical changes from left mastectomy. Additional surgical clips within the left axilla from axillary lymph node dissection. No axillary adenopathy. LOWER NECK: No significant findings. UPPER ABDOMEN: Small paraesophageal hernia. Left superior pole renal 2.1 cm cyst. IMPRESSION: Post surgical changes from left mastectomy and axillary dissection. No CT evidence for recurrence wit hin the chest. [facility], , 05/23/2024 11:03 AM
== END | disposition home or self-care (01) ==
LOC: RADCTMAIN 09:42
PROVIDERS: ATTEND Internal Medicine
CPT/HCPCS: 36415; 71260; 82565; 84520

== ENCOUNTER → 2024-06-06 | Outpatient (CLI) | payer OTHER ==
--- NOTE | 2024-06-06 08:48 | MM ---
Reason for Exam: Follow-up at short interval from prior study. Last mammogram was performed 2 year(s) and 7 month(s) ago. Patient History: Menarche at age 11. First Full-Term at age 15. Postmenopausal. Breast cancer, left, age 61. Previous chest radiation therapy at age 61. Previous chemotherapy at age 61. Currently using Tamoxifen, starting at age 61. 04/15/2022, Malignant US breast needle core LT on the left side. 04/15/2022, US breast needle core addl LT on the Left side. Prior Study Comparison: 10/29/2021 Bilateral Screening Mammogram, [facility]. 04/15/2022 Left MG diagnostic mammo LT wo CAD., [facility]. 04/15/2023 Right MG 3D diag mammo w/cad CAS, [facility]. Tissue Density: Right: The breasts are heterogeneously dense, which may obscure small masses. Findings: Analyzed By CAD. The pattern overall appears similar to prior study. There is some focal asymmetry developing in the upper outer anterior right breast with indistinct borders. This appears to be a change. Additional compression views were obtained. This disperses in the cranial caudal view. There may be some persistence in the mediolateral oblique view. Additional evaluation with ultrasound recommended. Benign vascular round calcifications are present. No suspicious cluster of microcalcifications evident. Overall Assessment: Incomplete: need additional imaging evaluation, BI-RAD 0 Management: Diagnostic Breast Ultrasound of the right breast. A negative mammogram report should not preclude additional follow up of suspicious palpable abnormalities. Patient should continue monthly self breast exam. A clinical breast exam by your physician is recommended on an annual basis and results should be correlated with mammographic findings. Note on Tonia scores and lifetime risk: 1. A Tonia score greater than 3% is considered moderate risk. If this is the case, consider specialist referral to assess eligibility for a risk reducing agent. 2. If overall lifetime risk for the development of breast cancer is 20% or higher, the patient may qualify for future screening with alternating mammogram and breast MRI. [facility], , 06/06/2024 8:20 AM. Electronically signed and approved by: Piter Araiza D.O. Radiologis
--- NOTE | 2024-06-06 10:00 | USB ---
Reason for Exam: Additional evaluation requested from abnormal screening. Patient History: Menarche at age 11. First Full-Term at age 15. Postmenopausal. Breast cancer, left, age 61. Previous chest radiation therapy at age 61. Previous chemotherapy at age 61. Currently using Tamoxifen, starting at age 61. 04/15/2022, Malignant US breast needle core LT on the left side. 04/15/2022, US breast needle core addl LT on the Left side. Technique: Method: Targeted. Prior Study Comparison: 10/29/2021 Bilateral Screening Mammogram, [facility]. 04/08/2022 Left US breast LT, [facility]. 04/15/2022 Left MG diagnostic mammo LT wo CAD., [facility]. 11/04/2022 Bilateral MR breast bilat wo/w con, [facility]. 04/15/2023 Right MG 3D diag mammo w/cad CAS, [facility]. Findings: The upper outer quadrant of the right breast, the axilla of the right breast and the retroareolar of the right breast were scanned. No solid or cystic masses are identified within the right breast anterior position. There is some lymphadenopathy within the right axilla. One of these has a thickened cortex of 0.4 cm at the right axillary tail. Patient has had both Covid and flu vaccination in the left arm in last month. Precautionary follow up right breast ultrasound in 3 months recommended. Overall Assessment: Probably benign, BI-RAD 3 Management: Diagnostic Breast Ultrasound of the right breast in 3 months. A clinical breast exam by your physician is recommended on an annual basis and results should be correlated with mammographic findings. This exam should not preclude additional follow-up of suspicious palpable abnormalities. Results were given to the patient verbally at the time of exam. [facility], , 06/06/2024 8:53 AM. Electronically signed and approved by: Piter Araiza D.O. Radiologis
== END | disposition home or self-care (01) ==
LOC: RADMAMWWP 07:39
PROVIDERS: ATTEND Family Medicine
DX: C50.012 Malignant neoplasm of nipple and areola, left female breast (principal); R92.333 Mammographic heterogeneous density, bilateral breasts; Z78.0 Asymptomatic menopausal state; Z92.3 Personal history of irradiation
CPT/HCPCS: 77061; 77065

== ENCOUNTER → 2024-08-09 | Outpatient (CLI) | payer OTHER | LOC: CPPFTMAIN 10:21 | PROVIDERS: ATTEND Internal Medicine Critical Care Medicine | DX: R06.02 Shortness of breath (principal); Z88.5 Allergy status to narcotic agent; Z88.0 Allergy status to penicillin | CPT/HCPCS: 94060; 94726; 94729 ==

== ENCOUNTER → 2024-09-16 | Outpatient (CLI) | payer OTHER ==
--- NOTE | 2024-09-16 09:02 | USB ---
Reason for Exam: Clinical finding. Patient History: Menarche at age 11. First Full-Term at age 15. Postmenopausal. Breast cancer, left, age 61. Previous chest radiation therapy at age 61. Previous chemotherapy at age 61. Currently using Tamoxifen, starting at age 61. 04/15/2022, Malignant US breast needle core LT on the left side. 04/15/2022, US breast needle core addl LT on the Left side. Prior Study Comparison: 04/15/2022 Left MG diagnostic mammo LT wo CAD., [facility]. 04/15/2023 Right MG 3D diag mammo w/cad CAS, [facility]. 06/06/2024 Right MG 3D diag mammo w/cad RT, [facility]. 06/06/2024 Right US breast limited RT, [facility]. Findings: The axilla of the right breast was scanned. Ultrasound right axilla. Thickened, borderline-enlarged lymph node redemonstrated and currently measuring 2.5 x 1.6 x 0.8 cm with some cortical thickening up to 7 mm. This is in comparison to 1.8 x 1.3 x 0.8 cm on 06/06/2024 with cortical thickening up to 5 mm. Possibly reactive/post inflammatory etiology. The patient reports recent COVID/flu vaccine prior to the May study. Overall Assessment: Probably benign, BI-RAD 3 Management: Diagnostic Breast Ultrasound of the right breast in 3 months. Diagnostic Mammogram of the right breast in 3 months. Thickened and borderline-enlarged axillary lymph node, minimally increased from 3 months ago. Nonspecific and probably reactive/post inflammatory. Additional 3 month follow-up recommended. If the node continues to thicken/enlarge, tissue sampling can be considered. A clinical breast exam by your physician is recommended on an annual basis and results should be correlated with mammographic findings. This exam should not preclude additional follow-up of suspicious palpable abnormalities. Results were given to the patient verbally at the time of exam. [facility], , 09/16/2024 8:58 AM. Electronically signed and approved by: Dipika Bear M.D. Radiologist
== END | disposition home or self-care (01) ==
LOC: RADUSWWP 08:20
PROVIDERS: ATTEND Family Medicine
DX: R59.0 Localized enlarged lymph nodes (principal); Z78.0 Asymptomatic menopausal state; Z85.3 Personal history of malignant neoplasm of breast

== ENCOUNTER 2024-10-26 09:20 | Emergency (ER) | payer OTHER ==
[2024-10-26] MEDS: MORPHINE SULFATE 4 MG/ML SYRINGE IVP STA ×2 (09:59→12:04)
[2024-10-26 10:04] LABS: Anisocytosis Slight; Basophils % (A) 0 %; Eosinophils # (A) 0.2 k/uL (0-0.7); Eosinophils % (A) 2 %; HCT 32.1 % (34.0-46.0); HGB 10.2 gm/dL (11.4-16.0); Hypochromasia Moderate; Lymphocytes # (A) 1.6 k/uL (1.0-4.8); Lymphocytes % (A) 16 %; MCH 29.3 pg (25.0-35.0); MCHC 31.8 g/dL (31.0-37.0); Mean Platelet Volume 8.3; Monocytes # (A) 0.5 k/uL (0-1.0); Monocytes % (A) 5 %; Neutrophils # (A) 7.4 k/uL (1.3-7.7); Neutrophils % (A) 76 %; Platelet Count 198 k/uL (150-450); RBC 3.48 m/uL (3.80-5.40); RDW 18.6 % (11.5-15.5); WBC 9.8 k/uL (3.8-10.6)
--- NOTE | 2024-10-26 10:06 | ED ---
Extremity Problem HPI - General Chief complaint: Extremity Problem,Nontraumatic Stated complaint: leg pain Time Seen by Provider: 10/26/24 09:30 Source: patient, RN notes reviewed Mode of arrival: ambulatory Limitations: no limitations - History of Present Illness Initial comments: This is a 64-year-old female who presents to the emergency department for leg pain and bruising. Patient states that about a week ago she started developing intermittent cramping in her left leg. A few days ago she started to notice bruising in the back of her leg that has continued to progress and is also now in the front of her leg. The pain started in the calf and is now moving up the leg. Denies any injuries. She is on Xarelto and is also receiving iron infusio ns. States that the pain got worse today, prompting her to come in for evaluation. Denies any history of similar problems in the past. Denies any chest pain or shortness of breath. MD Complaint: extremity pain - Related Data Home Medications Medication Instructions Recorded Confirmed hydroCHLOROthiazide [Hydrodiuril] 25 mg PO DAILY 10/07/14 10/26/24 carvediloL 25 mg PO BID 10/07/18 10/26/24 Ezetimibe [Zetia] 10 mg PO HS 04/08/22 10/26/24 Flecainide [Tambocor] 50 mg PO BID 04/08/22 10/26/24 Rivaroxaban [Xarelto] 20 mg PO HS 04/08/22 10/26/24 Cinnamon Bark [Cinnamon] 1,000 mg PO DAILY 12/03/22 10/26/24 Co Q-10(Unknown Dose) 1 tab PO DAILY 10/26/24 10/26/24 Magnesium 150mg 150 mg PO DAILY 10/26/24 10/26/24 Omeprazole 40 mg PO DAILY 10/26/24 10/26/24 Osteo Bi Flex W/Turmeric 2 tab PO DAILY 10/26/24 10/26/24 Pravastatin Sodium [Pravachol] 40 mg PO HS 10/26/24 10/26/24 Vit C/E/Zn/Coppr/Lutein/Zeaxan 2 cap PO DAILY 10/26/24 10/26/24 [Preservision Areds 2 Softgel] amLODIPine [Norvasc] 2.5 mg PO DAILY 10/26/24 10/26/24 predniSONE 20 mg PO DAILY 10/26/24 10/26/24 Allergies Allergy/AdvReac Type Severity Reaction Status Date / Time Penicillins Allergy Anaphylaxis Verified 10/26/24 11:27 Rash/Hives codeine AdvReac Swelling Verified 10/26/24 11:27 of joints Review of Systems ROS Statement: Those systems with pertinent positive or pertinent negative responses have been documented in the HPI. ROS Other: All systems not noted in ROS Statement are negative. Past Medical History Past Medical History: Atrial Fibrillation, Blood Disorder, Cancer, Diabetes Mellitus, GERD/Reflux, Hyperlipidemia, Hypertension, Osteoarthritis (OA) Additional Past Medical History / Comment(s): DDD., chronic constipation, pre-diabetes., diagnosis left breast cancer. IRON DEFICIENCY ANEMIA. History of Any Multi-Drug Resistant Organisms: None Reported Past Surgical History: Tubal Ligation Additional Past Surgical History / Comment(s): cataracts,left breast bx,port a cath rt chest Past Anesthesia/Blood Transfusion Reactions: No Reported Reaction Additional Past Anesthesia/Blood Transfusion Reaction / Comment(s): no problems w/ prior blood transfusion Past Psychological History: Anxiety, Panic Disorder Smoking Status: Never smoker - Past Family History Sister(s) Family Medical History: Cancer, Renal Disease Additional Family Medical History / Comment(s): throat cancer Father Family Medical History: CVA/TIA Daughter(s) Family Medical History: Pulmonary Embolus Additional Family Medical History / Comment(s): PE CAUSED BY CONTROL Brother(s) Family Medical History: Rheumatoid Arthritis (RA) Additional Family Medical History / Comment(s): valve replacement,pancreatitis General Exam Limitations: no limitations General appearance: alert, in no apparent distress Head exam: Present: atraumatic, normocephalic, normal inspection Respiratory exam: Present: normal lung sounds bilaterally. Absent: respiratory distress, wheezes, rales, rhonchi, stridor Cardiovascular Exam: Present: regular rate, normal rhythm, normal heart sounds. Absent: systolic murmur, diastolic murmur, rubs, gallop, clicks Extremities exam: Present: other (Tenderness to palpation of the left calf. Ecchymosis to the posterior aspect of the left knee spreading distally and over the de león. Full range of motion. 2+ DP and PT pulses.) Neurological exam: Present: alert, oriented X3, CN II-XII intact Psychiatric exam: Present: normal affect, normal mood Course Vital Signs 10/26/24 10/26/24 10/26/24 09:21 11:29 11:45 Temperature 98.2 F 98.1 F 98.1 F Pulse Rate 86 82 68 Respiratory 18 18 20 Rate Blood Pressure 154/74 148/72 109/64 O2 Sat by Pulse 97 97 97 Oximetry 10/26/24 11:46 Temperature Pulse Rate Respiratory Rate Blood Pressure 118/71 O2 Sat by Pulse Oximetry Medical Decision Making - Medical Decision Making This is a 64-year-old female who presents to the emergency department for left leg pain and bruising. Was pt. sent in by a medical professional or institution? @ -No Did you speak to anyone other than the patient for history? @ -No Did you review nursing and triage notes? @ -Yes, and I agree, it is accurate with regards to the patient's symptoms. Were old charts reviewed? @ -No Differential Diagnosis? @ -Differential Musculoskeletal Muscular strain, contusion, ligament sprain, fracture, arthritis, septic arthritis, bursitis, cellulitis, muscle spasm, nerve compression, DVT, arterial occlusion, herpes zoster, electrolyte abnormality, tumor.... This is not meant to be in all inclusive list EKG interpreted by me (3pts min.)? @ -Not obtained X-rays interpreted by me (1pt min.)? @ -X-ray of the left femur and left tib-fib obtained. My interpretation identifies no acute fractures. CT interpreted by me (1pt min.)? @ -Not obtained U/S interpreted by me (1pt. min.)? @ -Duplex ultrasound of the left lower extremity obtained. My interpretation identifies no evidence of a DVT. What testing was considered but not performed? (CT, X-rays, U/S, labs)? Why? @ -None What meds were considered but not given? Why? @ -None Did you discuss the management of the patient with other professionals? @ -No Did you reconcile home meds? @ -No Was smoking cessation discussed for >3mins.? @ -No Was critical care preformed (if so, how long)? @ -No Were there social determinants of health that impacted care today? How? (Homelessness, low income, unemployed, alcoholism, drug addiction, transportation, low edu. Level, literacy, decrease access to med. care, long term, rehab)? @ -No Was there de-escalation of care discussed even if they declined? (Discuss DNR or withdrawal of care, Hospice)? @ -No What co-morbidities impacted this encounter? (DM, HTN, Smoking, COPD, CAD, Cancer, CVA, Hep., AIDS, mental health diagnosis, sleep apnea, morbid obesity)? @ -A-fib, anemia, DM Was patient admitted / discharged? @ -Discharged. Lab work demonstrates slightly low hemoglobin, consistent with patient's history of anemia. This is improved when compared with prior. Lab work also demonstrates signs of dehydration and is otherwise unremarkable. X- ray of the left femur and tib-fib demonstrate some phleboliths and subcutaneous soft tissue swelling, possibly a sequela of venous stasis. No acute process is otherwise identified. Duplex ultrasound of the left lower extremity demonstrates a hypoechoic collection measuring 10.8 cm along the medial aspect of the left calf. With the bruising they advised consideration of a subcutaneous hematoma. They advised clinical follow-up to ensure gradual resolution and to exclude the possibility of a mass. Findings reviewed with the patient. Pain treated in the emergency department. Advised elevation of the leg, warm compresses, and Tylenol as needed for pain relief. She is also advised to follow-up with her PCP in the next couple of days and advised of the need for repeat ultrasound. Patient discharged home in stable condition. Case discussed with ED attending Dr. Reynolds. Return precautions reviewed in depth, the patient is instructed to return to the emergency department with any new, worsening, or concerning symptoms. Patient verbalized understanding. Undiagnosed new problem with uncertain prognosis? @ -None Drug Therapy requiring intensive monitoring for toxicity (Heparin, Nitro, Insulin, Cardizem)? @ -None Were any procedures done? @ -None Diagnosis/symptom? @ -Left leg pain, subcutaneous hematoma Acute, or Chronic, or Acute on Chronic? @ -Acute Uncomplicated (without systemic symptoms) or Complicated (systemic symptoms)? @ -Uncomplicated Side effects of treatment? @ -None Exacerbation, Progression, or Severe Exacerbation] @ -Not applicable Poses a threat to life or bodily function? @ -No - Lab Data Result diagrams: 10/26/24 09:51 10/26/24 09:51 Lab Results 10/26/24 10/26/24 10/26/24 Range/Units 09:51 09:51 09:51 WBC 9.8 (3.8-10.6) k/uL RBC 3.48 L (3.80-5.40) m/uL Hgb 10.2 L (11.4-16.0) gm/dL Hct 32.1 L (34.0-46.0) % MCV 92.0 (80.0-100.0) fL MCH 29.3 (25.0-35.0) pg MCHC 31.8 (31.0-37.0) g/dL RDW 18.6 H (11.5-15.5) % Plt Count 198 (150-450) k/uL MPV 8.3 Neutrophils % 76 % Lymphocytes % 16 % Monocytes % 5 % Eosinophils % 2 % Basophils % 0 % Neutrophils # 7.4 (1.3-7.7) k/uL Lymphocytes # 1.6 (1.0-4.8) k/uL Monocytes # 0.5 (0-1.0) k/uL Eosinophils # 0.2 (0-0.7) k/uL Basophils # 0.0 (0-0.2) k/uL Hypochromasia Moderate Anisocytosis Slight PT 12.1 (10.0-12.5) sec INR 1.1 (<1.2) APTT 22.3 (22.0-30.0) sec Sodium 132 L (137-145) mmol/L Potassium 3.6 (3.5-5.1) mmol/L Chloride 96 L (98-107) mmol/L Carbon Dioxide 30 (22-30) mmol/L Anion Gap 6 mmol/L BUN 23 H (7-17) mg/dL Creatinine 0.81 (0.52-1.04) mg/dL Est GFR (CKD-EPI)AfAm 88 (>60 ml/min/1.73 sqM) Est GFR (CKD-EPI)NonAf 76 (>60 ml/min/1.73 sqM) Glucose 131 H (74-99) mg/dL Calcium 9.4 (8.4-10.2) mg/dL Magnesium 1.7 (1.6-2.3) mg/dL Total Bilirubin 0.8 (0.2-1.3) mg/dL AST 26 (14-36) U/L ALT 26 (4-34) U/L Alkaline Phosphatase 88 (38-126) U/L Total Protein 6.4 (6.3-8.2) g/dL Albumin 3.8 (3.5-5.0) g/dL - Radiology Data Radiology results: report reviewed, image reviewed Disposition Clinical Impression: Subcutaneous hematoma, Leg pain Disposition: HOME SELF-CARE Instructions (If sedation given, give patient instructions): Hematoma (ED) Additional Instructions: Return to the emergency department with any new, worsening, or concerning symptoms. Elevate the leg whenever you are seated and apply warm compresses to the calf. Take Tylenol as needed for pain relief. Follow-up with your primary care provider in the next couple of days. You will also need a repeat ultrasound in the next 4 to 6 weeks. Is patient prescribed a controlled substance at d/c from ED?: No Referrals: Oswald Judge DO [Primary Care Provider] - 1-2 days Time of Disposition: 11:30
[2024-10-26 10:24] LABS: ALT 26 U/L (4-34); AST 26 U/L (14-36); African American GFR (CKD) 88 (>60 ml/min/1.73 sqM); Albumin 3.8 g/dL (3.5-5.0); Alkaline Phosphatase 88 U/L (38-126); Anion Gap 6 mmol/L; Blood Urea Nitrogen 23 mg/dL (7-17); Calcium 9.4 mg/dL (8.4-10.2); Carbon Dioxide 30 mmol/L (22-30); Chloride 96 mmol/L (98-107); Glucose 131 mg/dL (74-99); Magnesium 1.7 mg/dL (1.6-2.3); Non-African American GFR(CKD) 76 (>60 ml/min/1.73 sqM); Potassium 3.6 mmol/L (3.5-5.1); Sodium 132 mmol/L (137-145); Total Bilirubin 0.8 mg/dL (0.2-1.3); Total Protein 6.4 g/dL (6.3-8.2)
--- NOTE | 2024-10-26 10:30 | XR ---
EXAMINATION TYPE: XR femur 2 views LT, XR tibia fibula 2 views LT DATE OF EXAM: 10/26/2024 10:18 AM COMPARISON: None CLINICAL INDICATION: Female, 64 years old with history of Leg pain and swelling; PHH, pain FINDINGS: Femur: There appears to be a 1.6 cm oval loose body along the lateral margin of the left hip. Hip joint spac e appears relatively maintained. No acute fracture, subluxation, dislocation is seen. Some degenerati ve spurring at the lateral and patellofemoral compartments. No significant knee joint effusion. Exten sor mechanism appears intact. Some vascular calcifications behind the knee. Tibia/fibula: Some phleboliths at the mid to distal leg and mild subcutaneous soft tissue swelling. Possible sequel a of venous stasis. Small posterior plantar heel spurs. No acute fracture, subluxation, dislocation i s seen. IMPRESSION: Femur and tibia/fibula: No acute osseous abnormality seen. There is some soft tissue swelling at the leg and suggestion of phleboliths at the mid to distal leg. Possible sequela of chronic venous stasis . Clinically correlate. Mild osteoarthritic change at the knee. [facility], , 10/26/2024 10:27 AM
[2024-10-26 10:34] LABS: INR 1.1 (<1.2); Partial Thromboplastin Time 22.3 sec (22.0-30.0); Prothrombin Time 12.1 sec (10.0-12.5)
[2024-10-26] MEDS: SODIUM CHLORIDE 0.9% 500 ML 500 ML IV ONE (10:48)
--- NOTE | 2024-10-26 11:11 | US ---
EXAMINATION TYPE: US venous doppler duplex LE LT DATE OF EXAM: 10/26/2024 10:51 AM COMPARISON: NONE CLINICAL INDICATION: Female, 64 years old with history of Leg pain and swelling; On blood thinners. Lower leg bruising. Patient states no injury TECHNIQUE: The lower extremity deep venous system is examined utilizing real time linear array sonog neal with graded compression, color doppler sonography, and spectral doppler. SIDE PERFORMED: Left FINDINGS: VESSELS IMAGED: Common Femoral Vein Deep Femoral Vein Greater Saphenous Vein * Femoral Vein Popliteal Vein Small Saphenous Vein * Proximal Calf Veins (* superficial vessels) Left Leg: Negative for DVT, Color Doppler imaging shows patency of the vessels. Spectral waveforms a re within normal limits. Left medial calf complex hypoechoic nonvascular area = 10.8 x 2.6 cm IMPRESSION: 1. No evidence for DVT within the left lower extremity imaged from the groin to the upper calf. 2. A hypoechoic collection measuring 10.8 cm along the medial aspect of the left calf. Given bruising , consider a subcutaneous hematoma. Clinical follow-up to ensure gradual resolution and exclude the p ossibility of a mass. 4-6 week follow-up targeted soft tissue ultrasound also recommended to ensure d ecreasing size. [facility], , 10/26/2024 11:08 AM
[2024-10-26 11:40] VITALS: TEMP 98.1
[2024-10-26] MEDS: traMADol 50 MG STARTER PACK 3 TAB BTL PO STA (11:42)
[2024-10-26 11:45] VITALS: PULSE 68; RESP 20
[2024-10-26 11:46] VITALS: BP 118/71
== END 2024-10-26 12:12 | disposition home or self-care (01) ==
LOC: EC 09:20
DX: S80.12XA Contusion of left lower leg, initial encounter (principal); M79.605 Pain in left leg; I48.91 Unspecified atrial fibrillation; D64.9 Anemia, unspecified; E11.9 Type 2 diabetes mellitus without complications; Z88.0 Allergy status to penicillin; Z88.5 Allergy status to narcotic agent; X58.XXXA Exposure to other specified factors, initial encounter
CPT/HCPCS: 99284 ×2; 96374 ×2; 96376 ×2; 36415; 80053; 83735; 85025; 85610; 85730; 73552; 73590; 93971; J2270

== ENCOUNTER 2024-11-30 12:07 | Emergency (ER) | payer OTHER ==
[2024-11-30 12:21] VITALS: TEMP 98.4
--- NOTE | 2024-11-30 13:50 | ED ---
ENT HPI - General Chief complaint: ENT Stated complaint: bleeding from L ear Time Seen by Provider: 11/30/24 13:49 Source: patient, RN notes reviewed Mode of arrival: ambulatory Limitations: no limitations - History of Present Illness Initial comments: 64-year-old female sent from urgent care for further evaluation of bleeding left ear. Patient states for the past 2 days she has noticed bleeding coming from her left ear. Patient does take Xarelto. She does state while walking she noticed an increase in bleeding. She denies any head injuries or traumas. No injuries to left ear. She denies any hearing loss or tinnitus. Denies hearing aid use. Patient does admit to using Q-tips. She denies any fevers, chills, nausea, vomiting, sore throat, cough, congestion or other complaints at this time. - Related Data Home Medications Medication Instructions Recorded Confirmed hydroCHLOROthiazide [Hydrodiuril] 25 mg PO DAILY 10/07/14 10/26/24 carvediloL 25 mg PO BID 10/07/18 10/26/24 Ezetimibe [Zetia] 10 mg PO HS 04/08/22 10/26/24 Flecainide [Tambocor] 50 mg PO BID 04/08/22 10/26/24 Rivaroxaban [Xarelto] 20 mg PO HS 04/08/22 10/26/24 Cinnamon Bark [Cinnamon] 1,000 mg PO DAILY 12/03/22 10/26/24 Co Q-10(Unknown Dose) 1 tab PO DAILY 10/26/24 10/26/24 Magnesium 150mg 150 mg PO DAILY 10/26/24 10/26/24 Omeprazole 40 mg PO DAILY 10/26/24 10/26/24 Osteo Bi Flex W/Turmeric 2 tab PO DAILY 10/26/24 10/26/24 Pravastatin Sodium [Pravachol] 40 mg PO HS 10/26/24 10/26/24 Vit C/E/Zn/Coppr/Lutein/Zeaxan 2 cap PO DAILY 10/26/24 10/26/24 [Preservision Areds 2 Softgel] amLODIPine [Norvasc] 2.5 mg PO DAILY 10/26/24 10/26/24 predniSONE 20 mg PO DAILY 10/26/24 10/26/24 Allergies Allergy/AdvReac Type Severity Reaction Status Date / Time Penicillins Allergy Anaphylaxis Verified 11/30/24 12:21 Rash/Hives codeine AdvReac Swelling Verified 11/30/24 12:21 of joints Review of Systems ROS Statement: Those systems with pertinent positive or pertinent negative responses have been documented in the HPI. ROS Other: All systems not noted in ROS Statement are negative. Past Medical History Past Medical History: Atrial Fibrillation, Blood Disorder, Cancer, Diabetes Mellitus, GERD/Reflux, Hyperlipidemia, Hypertension, Osteoarthritis (OA) Additional Past Medical History / Comment(s): DDD., chronic constipation, pre- diabetes., diagnosis left breast cancer. IRON DEFICIENCY ANEMIA. History of Any Multi-Drug Resistant Organisms: None Reported Past Surgical History: Tubal Ligation Additional Past Surgical History / Comment(s): cataracts,left breast bx,port a cath rt chest Past Anesthesia/Blood Transfusion Reactions: No Reported Reaction Additional Past Anesthesia/Blood Transfusion Reaction / Comment(s): no problems w/ prior blood transfusion Past Psychological History: Anxiety, Panic Disorder Smoking Status: Never smoker Past Alcohol Use History: None Reported Past Drug Use History: None Reported - Past Family History Sister(s) Family Medical History: Cancer, Renal Disease Additional Family Medical History / Comment(s): throat cancer Father Family Medical History: CVA/TIA Daughter(s) Family Medical History: Pulmonary Embolus Additional Family Medical History / Comment(s): PE CAUSED BY CONTROL Brother(s) Family Medical History: Rheumatoid Arthritis (RA) Additional Family Medical History / Comment(s): valve replacement,pancreatitis General Exam Limitations: no limitations General appearance: alert, in no apparent distress Head exam: Present: atraumatic, normocephalic, normal inspection ENT exam: Present: normal oropharynx, mucous membranes moist, TM's normal bilaterally (Blood clot present in external auditory canal left. No active bleeding. Minimal wound to left external auditory canal. No mastoid tenderness bilaterally.) Neck exam: Present: normal inspection. Absent: tenderness, meningismus, lymphadenopathy Respiratory exam: Present: normal lung sounds bilaterally. Absent: respiratory distress, wheezes, rales, rhonchi, stridor Cardiovascular Exam: Present: regular rate, normal rhythm, normal heart sounds. Absent: systolic murmur, diastolic murmur, rubs, gallop, clicks Neurological exam: Present: alert, oriented X3, CN II-XII intact Skin exam: Present: warm, dry, intact, normal color. Absent: rash Course Vital Signs 11/30/24 11/30/24 12:19 14:37 Temperature 98.4 F Pulse Rate 75 77 Respiratory 20 18 Rate Blood Pressure 124/70 148/72 O2 Sat by Pulse 96 96 Oximetry Medical Decision Making - Medical Decision Making Was pt. sent in by a medical professional or institution (, SHIRLEY, HARMONIC ANALYST, urgent care, hospital, or longterm...) When possible be specific @ -Patient sent by urgent care for further evaluation of bleeding left ear Did you speak to anyone other than the patient for history (EMS, parent, family, police, friend...)? What history was obtained from this source @ -No Did you review nursing and triage notes (agree or disagree)? Why? @ -I reviewed and agree with nursing and triage notes Were old charts reviewed (outside hosp., previous admission, EMS record, old EKG, old radiological studies, urgent care reports/EKG's, longterm records)? Report findings @ -No old charts were reviewed Differential Diagnosis (chest pain, altered mental status, abdominal pain women, abdominal pain men, vaginal bleeding, weakness, fever, dyspnea, syncope, headache, dizziness, GI bleed, back pain, seizure, CVA, palpatations, mental health, musculoskeletal)? @ -Otitis media, otitis externa, foreign body, mastoiditis, laceration... This list is not meant to be all-inclusive EKG interpreted by me (3pts min.). @ -None done X-rays interpreted by me (1pt min.). @ -None done CT interpreted by me (1pt min.). @ -None done U/S interpreted by me (1pt. min.). @ -None done What testing was considered but not performed or refused? (CT, X-rays, U/S, labs)? Why? @ -None What meds were considered but not given or refused? Why? @ -None Did you discuss the management of the patient with other professionals (professionals i.e. SHIRLEY [place], HARMONIC ANALYST, lab, RT, psych nurse, pediatric social worker, crab steamer, teacher, safety and security officer, major case detective)? Give summary @ -No Was smoking cessation discussed for >3mins.? @ -No Was critical care preformed (if so, how long)? @ -No Were there social determinants of health that impacted care today? How? (Homelessness, low income, unemployed, alcoholism, drug addiction, transportation, low edu. Level, literacy, decrease access to med. care, long term, rehab)? @ -No Was there de-escalation of care discussed even if they declined (Discuss DNR or withdrawal of care, Hospice)? DNR status @ -No What co-morbidities impacted this encounter? (DM, HTN, Smoking, COPD, CAD, Cancer, CVA, ARF, Chemo, Hep., AIDS, mental health diagnosis, sleep apnea, morbid obesity)? @ -Atrial fibrillation on Xarelto Was patient admitted / discharged? Hospital course, mention meds given and route, prescriptions, significant lab abnormalities, going to OR and other pertinent info. @ -Discharge. 64-year-old female presented the ER for evaluation of bleeding left ear. Vital stable. Examination remarkable for blood clots noted to left external auditory canal. There is no active bleeding. There appears to be a small laceration/wound to left external auditory canal underlying blood clots. Bilateral tympanic membranes are unremarkable. No mastoid tenderness bilaterally. For examination ear irrigated with normal saline to remove blood clots, with success. There is no active bleeding noted after blood clot removal. Patient will be started on ofloxacin eardrops for infection prophylaxis, dosing instructions reviewed with patient. I advised close follow- up with ENT, referral given, for further evaluation and treatment along with PCP. Strict return parameters discussed. Patient discharged in stable condition. Patient verbally expressed understanding agreement with care plan. Case discussed with ED attending, Dr. Catherine. Undiagnosed new problem with uncertain prognosis? @ -No Drug Therapy requiring intensive monitoring for toxicity (Heparin, Nitro, Insulin, Cardizem)? @ -No Were any procedures done? @ -No Diagnosis/symptom? @ -Bleeding from left external auditory canal Acute, or Chronic, or Acute on Chronic? @ -Acute Uncomplicated (without systemic symptoms) or Complicated (systemic symptoms)? @ -Uncomplicated Side effects of treatment? @ -No Exacerbation, Progression, or Severe Exacerbation? @ -No Poses a threat to life or bodily function? How? (Chest pain, USA, OR, pneumonia, PE, COPD, DKA, ARF, appy, cholecystitis, CVA, Diverticulitis, Homicidal, Suicidal, threat to staff... and all critical care pts) @ -Low Disposition Clinical Impression: Injury of external auditory canal Disposition: HOME SELF-CARE Condition: Stable Additional Instructions: Use eardrops 5 drops in affected ear twice daily for 5 days. Follow-up closely with ENT and PCP for reevaluation. Return to the ER for any new or worsening concerns. Is patient prescribed a controlled substance at d/c from ED?: No Referrals: Oswald Judge DO [Primary Care Provider] - 1-2 days Gutierrez Nuñez MD [STAFF PHYSICIAN] - 1-2 days Lloyd Reno MD [STAFF PHYSICIAN] - 1-2 days Time of Disposition: 13:50
[2024-11-30] MEDS: OFLOXACIN 0.3% OPHTH DROPS 5 ML BOTTLE LEFT EAR STA (14:34)
[2024-11-30 14:38] VITALS: BP 148/72; PULSE 77; RESP 18
== END 2024-11-30 14:38 | disposition home or self-care (01) ==
LOC: EC 12:07
DX: H92.22 Otorrhagia, left ear (principal); I48.91 Unspecified atrial fibrillation; Z88.0 Allergy status to penicillin; Z88.5 Allergy status to narcotic agent
CPT/HCPCS: 99282

== ENCOUNTER → 2024-12-08 | Outpatient (CLI) | payer OTHER ==
--- NOTE | 2024-12-08 11:05 | MM ---
Reason for Exam: Follow-up at short interval from prior study. Last screening mammogram was performed 6 month(s) ago. Patient History: Menarche at age 11. First Full-Term at age 15. Postmenopausal. Breast cancer, left, age 61. Previous chest radiation therapy at age 61. Previous chemotherapy at age 61. Currently using Tamoxifen, starting at age 61. 2021, Mastectomy on the Left side. 04/15/2022, Malignant US breast needle core LT on the left side. 04/15/2022, US breast needle core addl LT on the Left side. Prior Study Comparison: 04/15/2022 Left MG diagnostic mammo LT wo CAD., [facility]. 04/15/2023 Right MG 3D diag mammo w/cad CAS, [facility]. 06/06/2024 Right MG 3D diag mammo w/cad RT, [facility]. Tissue Density: Right: The breasts are heterogeneously dense, which may obscure small masses. Findings: Analyzed By CAD. Benign-appearing rounded, dystrophic, and vascular calcifications in the right breast are redemonstrated. Overall Assessment: Benign, BI-RAD 2 Management: Diagnostic Mammogram of the right breast. Back on annual schedule right breast. Results were given to the patient verbally at the time of exam. Patient should continue monthly self-breast exams. A clinical breast exam by your physician is recommended on an annual basis. This exam should not preclude additional follow-up of suspicious palpable abnormalities. Note on Tonia scores and lifetime risk: 1. A Tonia score greater than 3% is considered moderate risk. If this is the case, consider specialist referral to assess eligibility for a risk reducing agent. 2. If overall lifetime risk for the development of breast cancer is 20% or higher, the patient may qualify for future screening with alternating mammogram and breast MRI. [facility], , 12/08/2024 11:02 AM. Electronically signed and approved by: Rafita Becker M.D.
--- NOTE | 2024-12-08 11:34 | USB ---
Reason for Exam: Follow-up at short interval from prior study. Patient History: Menarche at age 11. First Full-Term at age 15. Postmenopausal. Breast cancer, left, age 61. Previous chest radiation therapy at age 61. Previous chemotherapy at age 61. Currently using Tamoxifen, starting at age 61. 2021, Mastectomy on the Left side. 04/15/2022, Malignant US breast needle core LT on the left side. 04/15/2022, US breast needle core addl LT on the Left side. Technique: Method: Targeted. Prior Study Comparison: 04/15/2022 Left MG diagnostic mammo LT wo CAD., [facility]. 04/15/2023 Right MG 3D diag mammo w/cad CAS, [facility]. 06/06/2024 Right MG 3D diag mammo w/cad RT, [facility]. Findings: The axilla of the right breast was scanned. Targeted ultrasound. Persistent prominent but stable appearing lymph node in the left axilla with slight eccentric cortical thickening up to 7 mm redemonstrated. No new or enlarging adenopathy.Targeted ultrasound. Persistent prominent but stable appearing lymph node in the right axilla with slight eccentric cortical thickening up to 7 mm redemonstrated. No new or enlarging adenopathy. Overall Assessment: Benign, BI-RAD 2 Management: Diagnostic Mammogram of the right breast in 9 months. A clinical breast exam by your physician is recommended on an annual basis and results should be correlated with mammographic findings. This exam should not preclude additional follow-up of suspicious palpable abnormalities. Results were given to the patient verbally at the time of exam. [facility], , 12/08/2024 11:32 AM. Electronically signed and approved by: Rafita Becker M.D.
== END | disposition home or self-care (01) ==
LOC: RADMAMWWP 10:13
PROVIDERS: ATTEND Family Medicine
DX: R59.0 Localized enlarged lymph nodes (principal); R92.331 Mammographic heterogeneous density, right breast; R92.1 Mammographic calcification found on diagnostic imaging of breast; Z78.0 Asymptomatic menopausal state; Z90.12 Acquired absence of left breast and nipple; Z85.3 Personal history of malignant neoplasm of breast
CPT/HCPCS: 77061; 77065